=== PATIENT | male | born 1930 | race Caucasian/White ===

== ENCOUNTER 2016-05-15 13:11 | Inpatient (IN) | payer OTHER, MEDICARE ==
[~2016-05-15] VITALS: Ht 177.8 cm; Wt 120.2 kg
[~2016-05-15 13:11] MED LIST: ALPRAZOLAM0.5 MG PO; AMOXICILLIN500 MG PO; ASPIRIN CHILDRE81 MG PO; ASPIRIN E.C.81 MG PO; AUGMENTIN 875-1 EACH PO; AUGMENTIN 875875 MG PO; AVODART0.5 MG PO; CALCIUM 600600 M1 PO; COUMADIN 5 MG TA5 MG PO; COUMADIN2.5 M1 PO; CRESTOR40 MG PO; FENTANYL TR50 MCG/HR TOP; FENTANYL1 EAC3 TOP; FLOMAX(MONOGRA0.4 MG PO; FOLIC ACID0.8 MG PO; FUROSEMIDE40 M1 PO; K-TAB ER20 MEQ PO; LISINOPRIL10 M1 PO; MIRALAX17 GM PO; MUCINEX600 MG PO; NEURONTIN800 M1 PO; NITROSTAT0.4 MG PO; PERCOCET 10-321 EACH PO; PERCOCET 325 MG1 TAB PO; PREDNICOT10 MG PO; PREDNISONE5 M1 PO; PROBIOTIC FORMU1 CAP PO; PROTONIX40 M3 PO; SPIRIVA 18 MCG18 MCG INH; TOPROL XL 25MG25 MG PO; TOPROL XL25 M1 PO; TYLENOL500 MG PO; WARFARIN SODIU2.5 MG PO
[2016-05-15 14:03] LABS: ABSOLUTE BASOPHIL COUNT 0 /CUMM (0.0-0.2); ABSOLUTE EOSINOPHIL COUNT 0 /CUMM (0.0-0.7); ABSOLUTE GRANULOCYTE CT 6.6 /CUMM (1.4-6.5); ABSOLUTE LYMPH COUNT 0.9 /CUMM (1.2-3.4); ABSOLUTE MONOCYTE COUNT 0.3 /CUMM (0.10-0.60); BASOPHIL % 0.2 % (0.0-2.0); EOSINOPHIL % 0.6 % (0-5); HEMATOCRIT 43.2 % (42-52); MEAN CORPUSCULAR HGB 31.4 PG (27.0-31.0); MEAN CORPUSCULAR HGB CONC 34.5 G/DL (33.0-37.0); MEAN PLATELET VOLUME 7.6 FL (7.4-10.4); PLATELET COUNT 161 /CUMM (130-400); RBC DISTRIBUTION WIDTH 15.3 % (11.5-14.5); RED BLOOD CELL CT 4.75 /CUMM (4.70-6.10); WHITE BLOOD CELL COUNT 7.9 /CUMM (4.8-10.8)
[2016-05-15 14:08] LABS: PT 23.6 SEC (9.4-12.5)
[2016-05-15 14:23] LABS: GRANULOCYTE % 83.8 % (42.2-75.2)
--- NOTE | 2016-05-15 14:46 | CT SCAN REPORT ---
EXAMINATION: CT HEAD WITHOUT CONTRAST CT CERVICAL SPINE WITHOUT CONTRAST CLINICAL INFORMATION: 85-year-old man with fall, head injury, and neck pain. COMPARISON: 12/06/[address] TECHNIQUE: Imaging was performed from the skull base to vertex without intravenous administration of contrast. In addition, helical noncontrast CT imaging was acquired through the cervical spine and source images were reviewed along with axial reconstructions and sagittal and coronal MPRs. 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 No intracranial mass, hemorrhage, or midline shift is visualized. No extra-axial collections are identified. The paranasal sinuses are well aerated. There is patchy opacification of left sided mastoid tip cells. CERVICAL SPINE: There is no evidence of acute cervical spine fracture. Vertebral bodies remain normal in height. There has been prior instrumented C4-C5 ACDF and there is also solid interbody bony bridging at C5-C6 and C6-C7. There is multilevel facet ankylosis. There is straightening of the normal cervical lordosis with mild degenerative endplate changes at C2-C3, C3-C4, and C7-T1, accompanied by mild loss of normal disc space. No pre- or paravertebral soft tissue abnormality is identified. Limited assessment of the lung apices is unremarkable. IMPRESSION: 1. No acute intracranial pathology. 2. No CT evidence of acute cervical spine fracture or traumatic subluxation.
--- NOTE | 2016-05-15 15:36 | ED MVC/FALL/TRAUMA COMPLAINT ---
History of Present Illness General Chief Complaint: Fall Stated Complaint: BIBA FALL Source: patient, family, old records, EMS Exam Limitations: no limitations Vital Signs & Intake/Output Vital Signs & Intake/Output Vital Signs Date Time Temp Pulse Resp B/P Pulse O2 O2 Flow FiO2 Ox Delivery Rate 05/15 1646 97.6 70 18 144/65 96 Nasal 2.0L Cannula 05/15 1334 97 Nasal 2.0L Cannula 05/15 1333 97.7 78 18 138/60 97 Nasal 2.0L Cannula Allergies Coded Allergies: NO KNOWN ALLERGIES (10/07/14) Reconcile Medications Acetaminophen (Tylenol) 500 MG TAB 1 TAB PO DAILY PRN PAIN (Reported) NOT GIVEN IN HOSPITAL Amoxicillin/Potassium Clav (Augmentin 875-125 Tablet) 1 EACH TABLET 1 TAB PO BID PRN wound prophylaxis Aspirin (Aspirin E.c.) 81 MG ECT 1 TAB PO DAILY HEART HEALTH (Reported) Dutasteride (Avodart) 0.5 MG CAP 1 CAP PO DAILY PROSTATE (Reported) Fentanyl 1 EACH PATCH.TD72 1 PAT TOP Q3D PAIN (Reported) Folic Acid 0.8 MG TAB 1 TAB PO DAILY SUPPLEMENT (Reported) Furosemide 40 MG TABLET 1 TAB PO DAILY HEART (Reported) Gabapentin (Neurontin) 800 MG TABLET 1 TAB PO TID NEUROPATHY (Reported) NOT GIVEN IN HOSPITAL Guaifenesin (Mucinex) [address] 1 TAB PO DAILY PRN SPUTUM PRODUCTION ( Reported) Lactobacillus Acidophilus (Probiotic Formula Capsule) 10B CELL CAPSULE 1 TAB PO DAILY PROBIOTIC (Reported) Lisinopril 10 MG TABLET 1 TAB PO DAILY HTN (Reported) Metoprolol Succ XL (Toprol XL) (Unknown Strength) TAB (Unknown Dose) PO DAILY HEART/BP (Reported) Nitroglycerin (Nitrostat) 0.4 MG TAB.SUBL 1 TAB PO DAILY PRN CHEST PAIN ( Reported) OXYCODONE HCL/ACETAMINOPHEN (Percocet 10-325 MG Tablet) 325 MG/10 MG TAB 1 TAB PO Q4-6 PRN PAIN (Reported) NOT GIVEN IN HOSPITAL Oxycodone HCl/Acetaminophen (Percocet 10-325 MG Tablet) 1 EACH TABLET 1 TAB PO Q6H PRN pain Pantoprazole Sodium (Protonix) 40 MG TABLET.DR 1 TAB PO DAILY GASTRITIS ( Reported) NOT GIVEN IN HOSPITAL Polyethylene Glycol 3350 (Miralax) 17 GRAM/DOSE POWDER 17 GM PO DAILY CONSTIPATION (Reported) mix with water, juice, soda, coffee or tea NOT GIVEN IN HOSPITAL POTASSIUM CHLORIDE (K-Dur) 20 MEQ TAB.ER.PRT 1 TAB PO DAILY SUPPLEMENT ( Reported) Prednisone 5 MG TAB 1 TAB PO DAILY ARTHRITS (Reported) Rosuvastatin Calcium (Crestor) 40 MG TAB 1 TAB PO DAILY CHOLESTEROL (Reported ) NOT GIVEN IN HOSPITAL Tamsulosin Hydrochloride (Flomax) 0.4 MG CAP.ER.24H 1 CAP PO DAILY URINARY RETENTION (Reported) NOT GIVEN IN HOSPITAL Tiotropium [place] (Spiriva) 18 MCG CAP.W.DEV 1 CAP INH DAILY COPD (Reported) NOT GIVEN IN HOSPITAL Warfarin Sodium (Coumadin) 2.5 MG TABLET 1 TAB PO DAILY BLOOD THINNER ( Reported) Triage Note: 85 YEAR OLD MALE BIBA FALL AT HOME. PT STATES HE HAD JUST GONE UP 3 STEPS AND WAS RESTING BESIDE A CABINET WHEN HE FELL. PT DENIES FELLING DIZZY, LIGHT HEADED, CHEST PAIN OR SOB PRIOR TO FALL. PT DOES REPORT HOME OXYGEN USE 2L AT BASELINE. WHEN PT FELL HIS HEAD HIT ANOTHER GLASS CABINET. PT DENIES LOC, SEVERAL SMALL LACS NOTED TO BACK OF PT HEAD AND BEHIND LEFT EAR. BLEEDING IS CONTROLLED AT THIS TIME. PT REPORTS TAKING WARFARIN FOR HX OF TIA'S. Triage Nurses Notes Reviewed? yes Onset: Just prior to arrival Duration: minute(s):, constant, continues in ED Timing: recent history Severity: severe Injuries/Fall Location: head, neck, back Method of Injury: direct blow, fall Loss of Consciousness: no loss of consciousness Modifying Factors: Worsens With: palpation. Associated Symptoms: trouble walking HPI: Prior to admission while standing patient lost his balance and fell backwards striking his head with no loss consciousness. He complains of left lateral neck discomfort left low back pain scalp bleeding. There's been no fever chills chest pain cough shortness of breath headache dysuria rash. The family reports there has been gait instability. Past History Travel History Traveled to [place] past 21 day No Medical History Any Pertinent Medical History? 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 No Review of Systems Review of Systems Constitutional: Reports: see HPI, weakness. Eyes: Reports: no symptoms. Ears, Nose, Throat, Mouth: Reports: no symptoms. Respiratory: Reports: no symptoms. Cardiovascular: Reports: no symptoms. Gastrointestinal/Abdominal: Reports: no symptoms. Genitourinary: Reports: no symptoms. Musculoskeletal: Reports: see HPI, back pain, neck pain. Skin: Reports: see HPI. Neurological/Psychological: Reports: no symptoms. All Other Systems: Reviewed and Negative Physical Exam Physical Exam General Appearance: well developed/nourished, no apparent distress, awake, anxious, moderate distress, obese Head: contusions, tenderness, abrasions not actively bleeding Eyes: Bilateral: normal appearance, PERRL, EOMI, normal inspection. Ears, Nose, Throat, Mouth: hearing grossly normal, moist mucous membrane Neck: normal inspection, supple, full range of motion, normal alignment, paraspinous muscle tender Respiratory: normal breath sounds, chest non-tender, no respiratory distress, quiet respiration, lungs clear Cardiovascular: regular rate/rhythm, normal peripheral pulses, norml femoral pulses equa Peripheral Pulses: 4+ carotid (R), 4+ carotid (L) Gastrointestinal: normal bowel sounds, soft, non-tender, no organomegaly Back: normal inspection, normal range of motion, decreased range of motion Extremities: normal range of motion Neurologic/Psych: no motor/sensory deficits, awake, alert, oriented x 3, normal mood/affect, 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 No Severe Sepsis Present: No Septic Shock Present: No Progress Differential Diagnosis: C/T/L spine injury, ICH Plan of Care: Orders Procedure Date/time Status Consistent Carbohydrate 2 05/16 B Active PROTHROMBIN TIME 05/16 06 Active CBC WITHOUT DIFFERENTIAL 05/16 06 Active BASIC ELECTROLYTES PLUS BUN&CR 05/16 06 Active Pathway - chart 05/15 1847 Active Add-on Test (ER Only) 05/15 1839 Active FingerStick- Glucose 05/15 1834 Active URINALYSIS 05/15 1830 Active ACETONE 05/15 1830 Active Pathway - chart 05/15 1828 Active House Staff 05/15 1828 Active Patient Data 05/15 1823 Active OXYGEN SETUP (GEN) 05/15 1733 Active Saline Lock 05/15 1733 Active Admit to inpatient 05/15 1733 Active Vital Signs 05/15 1733 Active Activity/Ambulation 05/15 1733 Active Code Status 05/15 1733 Active TROPONIN LEVEL 05/15 1343 Active PROTHROMBIN TIME 05/15 1343 Complete COMPREHENSIVE METABOLIC PANEL 05/15 1343 Active CBC WITHOUT DIFFERENTIAL 05/15 1343 Complete EKG 05/15 1343 Active SERUM OSMOLALITY 05/15 1334 Active Intake & Output 05/15 UNK Active Current Medications Sig/Darshan Start time Last Medication Dose Stop Time Status Admin Morphine Sulfate 2 MG Q6P PRN 05/15 1900 AC (Morphine) Acetaminophen 650 MG Q6P PRN 05/15 1845 AC (Tylenol) Oxycodone/ 1 TAB Q6P PRN 05/15 1845 AC Acetaminophen (Percocet) Potassium Chloride 40 MEQ Q10H 05/15 184 AC (KCl 40MEQ in N.S. 1000 ml bag) Sodium Chloride 1,000 ML (Normal Saline 0.9%) Laboratory Tests 05/15/16 1334: Anion Gap 13, Estimated GFR 48 L, BUN/Creatinine Ratio 15.7, Glucose 580 *H, Serum Osmolality Pending, Calcium 8.4, Total Bilirubin 0.8, AST 38, ALT 41, Alkaline Phosphatase 112, Troponin I < 0.01, Total Protein 6.4, Albumin 3.8, Globulin 2.6, Albumin/Globulin Ratio 1.5, PT 23.6 H, INR 2.27 H, CBC w Diff NO MAN DIFF REQ, RBC 4.75, MCV 91.0, MCH 31.4 H, RDW 15.3 H, MPV 7.6, Gran % 83.8 H, Lymphocytes % 11.0 L, Monocytes % 4.4, Eosinophils % 0.6, Basophils % 0.2, Absolute Granulocytes 6.6 H, Absolute Lymphocytes 0.9 L, Absolute Monocytes 0.3, Absolute Eosinophils 0, Absolute Basophils 0, PUBS MCHC 34.5 Diagnostic Imaging: Viewed by Me: CT Scan. Discussed w/RAD: CT Scan. Radiology Impression: no acute abnormality, no fracture Departure Departure Disposition: OTHER PYSCH Condition: Stable Clinical Impression Primary Impression: Diabetes mellitus, new onset Secondary Impressions: Contusion, back Qualifiers: Encounter type: initial encounter Laterality: left Qualified Code: S20.222A - Contusion of left back wall of thorax, initial encounter Fall at home Qualifiers: Encounter type: initial encounter Qualified Codes: W19.XXXA - Unspecified fall, initial encounter; Y92.099 - Unspecified place in other non- institutional residence as the place of occurrence of the external cause Minor head injury without loss of consciousness Qualifiers: Encounter type: initial encounter Qualified Code: S09.90XA - Unspecified injury of head, initial encounter Neck muscle strain Qualifiers: Encounter type: initial encounter Qualified Code: S16.1XXA - Strain of muscle, fascia and tendon at neck level, initial encounter Referrals: OKSANA FRIEDMAN MD (PCP/Family) Departure Forms: Customer Survey General Discharge Information Admission Note [facility] Documentation of Exam: Documentation of any treatments & extenuating circumstances including Concerns Regarding Discharge (functional status, medication knowledge or non-compliance, living conditions, etc.) that warrant an admission rather than observation: Supplemental oxygen serial lab exam IV hydration endocrinology evaluation medication adjustment continuing care discharge planning physical therapy
--- NOTE | 2016-05-15 16:45 | RADIOLOGY REPORT ---
EXAMINATION: XR LUMBOSACRAL SPINE CLINICAL INFORMATION: Fall with low back pain COMPARISON: CT abdomen pelvis 09/26/2014 TECHNIQUE: 5 views lumbosacral spine FINDINGS: The patient is status decompression and post posterior spinal fusion L2-L5 with bilateral pedicle screws and interconnecting rods. The hardware appears intact without evidence of loosening or breakage. Intervertebral disc spacers are also present at these levels. Vertebral bodies maintain their height and alignment. Mild to moderate disc narrowing outside these levels at T12-L1, L1-L2. Severe degenerative disc disease L5-S1. Multilevel moderate to large degenerative osteophytes. Osteopenia limits evaluation. Sacroiliac joints appear intact. Moderate degenerative changes of the hips bilaterally. Retrievable IVC filter. Vascular calcifications. IMPRESSION: 1. No radiographic evidence of acute fracture or subluxation. 2. Post surgical changes L2-L5. The hardware appears intact. 3. Retrievable IVC filter. 4. Moderate degenerative changes of the hips.
--- NOTE | 2016-05-15 20:08 | History & Physical ---
WEN BUCKNER MD 05/15/16 2008: General Information and HPI MD Statement: I have seen and personally examined JASPAL SULTANA and documented this H&P. The patient is a 85 year old M who presented with a patient stated chief complaint of syncope/head trauma. Source of Information: patient, family Exam Limitations: no limitations History of Present Illness: 85 year old man with past medical history significant for COPD on 2.0L home oxygen, PE/DVT on coumadin, Diastolic CHF, and CAD s/p stents 5+ years ago seen for evaluation after passing out at home and hitting his head. He reports being at home in his normal state of health when he climbed a flight of four stairs and was standing at the top of the landing when he suddenly went down. He felt forward with his head hitting a glass case in front of him. He was wearing a hat that reportedly protected [his] head. He was awake and alert laying on the floor after the event as witnessed by his and daughter whom were present in the other room. He does not recall the fall and is unsure if he lost consciousness. He denies any aura, blurred/double vision, bowel/bladder incontinence, or shaking episodes/seizure activity or recent medication changes. He does admit to a recent lung infection where he was given a 10 day course of Bactrim that finished the day prior to admission. Additionally he denies any headache, fever, chills, chest pain, palpitations, shortness of breath, nausea, vomiting, diarrhea, urinary frequency/urgency/pain, constipation, weight loss, or decreased oral intake. PMHx: CAD s/p stents 5+ years ago, Diastolic CHF, COPD on 2.0L home O2, PE/DVT on coumadin, HTN, HLD Allergies/Medications Allergies: Coded Allergies: NO KNOWN ALLERGIES (10/07/14) Past History Travel History Traveled to [place] past 21 day No Medical History Neurological: NONE EENT: [place] Cardiovascular: CAD, CHF, hypertension, hyperlipidemia Respiratory: COPD, pulmonary embolism Gastrointestinal: NONE Hepatic: NONE Renal: NONE Musculoskeletal: NONE Psychiatric: NONE Endocrine: NONE Blood Disorders: DVT Cancer(s): NONE SPOT CLEANER/Reproductive: NONE History of MRSA: No History of VRE: No History of CDIFF: No Tetanus Vaccine: 12/06/15 Surgical History Surgical History: BILAT KNEE REPLACEMENTS 8 BACK SURGERYS Multiple spinal surgeries ivc FILTER CARDIAC CATH WITH STENT PLACEMENT Past Family/Social History Family History Relations & Conditions if any BROTHER MOTHER Relation not specified for: FH: CAD (coronary artery disease) Premature CAD Psychosocial History Where do you live? Home Services at Home: None Review of Systems Review of Systems Constitutional: Reports: see HPI. Exam & Diagnostic Data Last 24 Hrs of Vital Signs/I&O Vital Signs Date Time Temp Pulse Resp B/P Pulse O2 O2 Flow FiO2 Ox Delivery Rate 05/15 2133 66 118/70 05/15 1957 98.2 72 18 116/72 05/15 1955 98.2 72 18 116/72 05/15 1934 98.2 72 18 116/72 97 Nasal 2.0L Cannula 05/15 1646 97.6 70 18 144/65 96 Nasal 2.0L Cannula 05/15 1334 97 Nasal 2.0L Cannula 05/15 1333 97.7 78 18 138/60 97 Nasal 2.0L Cannula Intake & Output 05/15 1600 05/15 0800 05/15 0000 Intake Total 1320 Output Total 725 Balance 595 Intake, IV 1000 Intake, Oral 320 Output, Urine 725 Physical Exam General Appearance Alert, Oriented X3, Cooperative, No Acute Distress Skin Multiple minor non bleeding abrasion on scalp and left ear HEENT PERRLA, EOMI, Mucous Membr. moist/pink Neck Supple, No JVD, +2 Carotid Pulse wo Bruit Cardiovascular Regular Rate, Normal S1, Normal S2, No Murmurs Lungs Clear to Auscultation, Normal Air Movement Abdomen Normal Bowel Sounds, Soft, No Tenderness, No Hepatospenomegaly, No Masses Neurological Normal Speech, Strength at 5/5 X4 Ext, Normal Tone, Cranial Nerves 3-12 NL Extremities No Clubbing, No Cyanosis, No Edema, Normal Pulses, No Tenderness/ Swelling Vascular Normal Pulses, Pulses Symmetrical Last 24 Hrs of Labs/Michael: Laboratory Tests 05/15/16 1830: Acetone Level Cancelled 05/15/16 1334: Hemoglobin A1c Pending 05/15/16 1334: Anion Gap 13, Estimated GFR 48 L, BUN/Creatinine Ratio 15.7, Glucose 580 *H, Serum Osmolality 305 H, Calcium 8.4, Total Bilirubin 0.8, AST 38, ALT 41, Alkaline Phosphatase 112, Troponin I < 0.01, Total Protein 6.4, Albumin 3.8, Globulin 2.6, Albumin/Globulin Ratio 1.5, Vitamin B12 607, 25-OH Vitamin D Total 6.7 L, TSH 2.170, Free T4 0.86, PT 23.6 H, INR 2.27 H, CBC w Diff NO MAN DIFF REQ, RBC 4.75, MCV 91.0, MCH 31.4 H, RDW 15.3 H, MPV 7.6, Gran % 83.8 H, Lymphocytes % 11.0 L, Monocytes % 4.4, Eosinophils % 0.6, Basophils % 0.2, Absolute Granulocytes 6.6 H, Absolute Lymphocytes 0.9 L, Absolute Monocytes 0.3, Absolute Eosinophils 0, Absolute Basophils 0, PUBS MCHC 34.5, Acetone Level Pending Diagnostic Data EKG Results NSR HR 76 AR 232 QTc 464 1st degree AVB Old t-wave inversions Assessment/Plan Assessment: 85 year old male with multiple medical problems significant for CAD, CHF, COPD, and PE/DVT seen for evaluation after a syncopal episode with associated head trauma. Patients family members offer collateral information regarding patients recent health status. He apparently has suffered another recent fall without any obvious trauma. Vital signs in the ED were within acceptable limits. Physical examination demonstrated an obese elderly man with multiple minor head laceration and normal cardiopulmonary examination in no acute distress. Lab work demonstrated a CBC within normal limits and a serum chemistry significant for Na 129, K 4.7, BUN/Cr 22/1.4, Glu 508. LFTs/troponin within normal limits. EKG was NSR HR 76, AR 232, QTC 464, with 1st degree AVB & old t-wave inversions. CT head /neck was negative for any acute intracranial pathology or fracture. Lumbar radiograph was within normal limits. Given patients extensive cardiac history and history of present illness and mechanism of injury patient will be admitted to the telemetry floor for further evaluation and care. Syncopal Episode: Extensive cardiac history of CAD s/p stents 5+ years ago, Diastolic CHF, HTN, and PE/DVT on coumadin. Patient of Dr. Lopez. Most recent echocardiogram () demonstrates an EF of >65% with diastolic dysfunction. EKG on admission demonstrates NSR 76, AR 232, QTC 464, 1st AVB, old t-wave inversion in precordial leads. Given patients history of present illness and sudden loss of consciousness cardiac causes cannot be ruled out. CT Head/Neck did not demonstrate any acute intracranial pathology/bleed/fracture. -Telemetry -Trend troponins/EKG -Nitroglycerin 0.4mg SL -Cardiology consult Hyperglycemia/New Onset Diabetes: No reported history of diabetes mellitus, no HbA1c available. -Accuchecks TIDAC/HS -Novolog sliding scale insulin -F/U HbA1c, Serum OSM, ketones Acute Kidney Injury: Creatitine baseline of 1.1 as of 12/06/15. Creatinine was found to be elevated to 1.4 on admission. -Normal saline @ 100mL/hr -Hold lisinopril/lasix COPD: On 2.0L supplemental oxygen at home. -Supplemental oxygen, goal >92% Obstructive Sleep Apnea - stable, continue nocturnal CPAP CAD - s/p stents, continue aspirin History of PE/DVT - no obvious bleeding, daily INR, dose coumadin accordingly Gout - stable, continue prednisone Hypertension - stable, continue Metoprolol Hyperlipidemia - stable, continue statin GERD - stable, continue Pantoprazole BPH - stable, continue flomax Pain Plan: -Acetaminophen 650mg PO Q6H PRN Pain 1-3 -Percocet 10mg PO Q6H PRN Pain 4-6 -Morphine 2mg IV Q6H PRN Pain 7-10 Diet - Heart Healthy Diet DVT PPx - Heparin Code Status - FULL CODE As Ranked By This Provider Problem List: 1. Fall at home Qualifiers Encounter type: initial encounter Qualified Codes: W19.XXXA - Unspecified fall, initial encounter; Y92.099 - Unspecified place in other non-institutional residence as the place of occurrence of the external cause Core Measures/Miscellaneous Acute Coronary Syndrome ACS Diagnosis: No Cerebrovascular Accident CVA/TIA Diagnosis: No Congestive Heart Failure CHF Diagnosis: No Venous Thromboembolism VTE Risk Factors: Acute medical illness, Age > 40, Obesity VTE Prophylaxis Ordered Inpt: Pharm- [facility]arin [facility] VTE prophylaxis d/t: No contraindications No VTE Pharm Prophylaxis d/t: No contraindications VTE Diagnosis: No VTE Type: NONE VTE Confirmed by (Test): NONE Severe Sepsis Severe Sepsis Present: No Septic Shock Septic Shock Present: No Miscellaneous Documentation Attending Case Discussed With: CAMPOS SAPP MD Primary Care Physician: OKSANA FRIEDMAN MD Patient sees these Specialists Dr. Lopez (Cardiology) Dr. Thakur (Pulmonology) Dr. Royal (Rheumatology) Level of Patient Care: Telemetry Consults Needed: Consulting Specialty: Cardiology SEKOU MCNEAL, [facility] 05/15/16 2015: Attending MD Review Statement Attending Statement Attending MD Statement: examined this patient, discuss w/resident/PA/FOOTWEAR SALES REPRESENTATIVE, agreed w/resident/PA/FOOTWEAR SALES REPRESENTATIVE, discussed with family Attending Assessment/Plan: 85 yo morbidly obese M with h/o COPD on 2L, SILVANO on CPAP, CAD s/p stent, chronic HFpEF, HTN, PE/ DVT s/p IVC on coumadin, TIA, polymyalgia on prednisone, presents status post fall at home. Patient reports walking up a few stairs, after which 'all he remembers' is that he was on the floor and his posterior aspect of head was bleeding as his head hit the glass cabinet. Similar fall about 1 year ago. He reports feeling very weak, but denies dizziness prior to the event. C/o polyuria, polydipsia and nocturia. He was recently treated for a URI with Bactrim. He has chronic exertional dyspnea and tends to increase his O2 to 4 L when needed. Patient follows Dr. Royal (Rheum), Dr. Soto (Pulm), Dr. Lopez (Cardio) and Dr. Amaya (Vascular). VSS. Labs: INR 2.27, Na 129, K 4.7, BUN/Cr 22/1.4 (baseline 1.1) glucose 580, corrected sodium for hyperglycemia is 137, trop < 0.01, UA neg. EKG: SR 76, T wave inv V2-4 (old), CT head/cervical and LS spine no fractures. Echo 01/31/15: EF 65%, stage 1 diastolic dysfunction. 1. Fall with possbile syncopal episode. Monitor for arrhythmias, check orthostats, rule out ACS, Cardio consult. Patient reports he had an Echo recently with Dr. Lopez, hold off on echo for now. Neurochecks, fall precautions, check TSH, free T4, vit D, B12. PT eval and possible placement. Patient is on chronic prednisone, if hypotensive check cortisol level and give stress dose steroids. 2. Weakness, hyperglycemia in the setting of chronic prednisone use. Accucheks, check HbA1c, intiiate novolog SS. Endo consult in AM. 3. IVAN. IV fluids, hold lasix, lisinopril. 4. Chronic back pain, Ct. Percocet as needed. DVT ppx dose coumadin per INR. Full code. TORO ESTEBAN MD 05/15/162040: General Information and HPI Allergies/Medications Home Med list Acetaminophen (Tylenol) 500 MG TAB 1 TAB PO DAILY PRN PAIN (Reported) NOT GIVEN IN HOSPITAL Alprazolam 0.25 MG TABLET 1-2 TAB PO DAILY NEEDED Anxiety (Reported) Aspirin (Aspirin E.c.) 81 MG ECT 1 TAB PO DAILY HEART HEALTH (Reported) Calcium Carbonate/Vitamin D3 (Calcium 600 + Vit D 200 Tablet) 600 MG-200 TABLET 2 TAB PO DAILY supplement (Reported) Folic Acid 0.8 MG TAB 1 TAB PO DAILY SUPPLEMENT (Reported) Furosemide 40 MG TABLET 1 TAB PO DAILY EDEMA (Reported) Reason to Stop at ADM: IVAN Gabapentin (Neurontin) 800 MG TABLET 1 TAB PO TID NEUROPATHY (Reported) NOT GIVEN IN HOSPITAL Guaifenesin (Mucinex) [address] 1 TAB PO DAILY PRN SPUTUM PRODUCTION ( Reported) Lactobacillus Acidophilus (Probiotic Formula Capsule) 10B CELL CAPSULE 1 TAB PO DAILY PROBIOTIC (Reported) Lisinopril 10 MG TABLET 1 TAB PO DAILY Blood pressure (Reported) Reason to Stop at ADM: IVAN Metoprolol Succ XL (Toprol XL) 25 MG TAB 50 MG PO DAILY HEART/BP (Reported) Nitroglycerin (Nitrostat) 0.4 MG TAB.SUBL 1 TAB PO DAILY PRN CHEST PAIN ( Reported) Omeprazole 40 MG CAPSULE.DR 1 CAP PO BID STOMACH (Reported) OXYCODONE HCL/ACETAMINOPHEN (Percocet 10-325 MG Tablet) 325 MG/10 MG TAB 1 TAB PO Q4-6 PRN PAIN (Reported) NOT GIVEN IN HOSPITAL Potassium Chloride (K-Tab ER) 20 MEQ TABLET.ER 1 TAB PO DAILY Supplement ( Reported) Reason to Stop at ADM: Not needed, stable level Prednisone 5 MG TAB 1 TAB PO DAILY ARTHRITS (Reported) Rosuvastatin Calcium (Crestor) 40 MG TAB 1 TAB PO DAILY CHOLESTEROL (Reported ) NOT GIVEN IN HOSPITAL Tamsulosin Hydrochloride (Flomax) 0.4 MG CAP.ER.24H 1 CAP PO DAILY URINARY RETENTION (Reported) NOT GIVEN IN HOSPITAL Tiotropium [place] (Spiriva) 18 MCG CAP.W.DEV 1 CAP INH DAILY COPD (Reported) NOT GIVEN IN HOSPITAL Warfarin Sodium (Coumadin) 5 MG TABLET 1 TAB PO 1700 Blood thinner (Reported) Resident Review Statement Resident Statement: examined this patient, discussed with wireless internet installer, agreed with wireless internet installer, discussed with family, reviewed EMR data (avail), discussed with nursing , discussed with case mgmt, reviewed images, amended to note Other Findings: 85 yo male with pmh of CAD s/p stent, chronic diastolic CHF (EF 65% 2014), HTN, HLD, COPD on 2L, Hx of pulmonary embolism/DVT (s/p IVC filter 2013) on coumadin, TIA (x 2 times), SILVANO on CPAP, ?RA/gout on prednisone BIBA due to witnessed fall at home. Around 12:30pm, he walked up 4 stairs and he fell down on the floor hitting his head on glass cabinet. He denied chest pain/palpitation, shortness of breath, dizziness, visual disturbance, weakness prior to fall. However, he didn't remember the moment he fell down. His and daughter witnessed the fall and he gained consciousness right after the fall. He followed marketing operations manager (Dr. Lopez) and building estimator (Dr. Thakur) in early . He was recently treated wth po bactrim for cough/sputum from PCP. He denies any fever/ chills, cough/sputum, chest pain/SOB. Otherwise, he c/o polydipsia/polyuria/ nocturia for 3 months. He c/o 8/10 Lt. sided back pain s/p fall. V/S: 98.2F AR 72 RR 18 BP 116/72 97% on 2L, on exam general: alert, oriented x 3 , in mild distress, obese, HEENT: PERRLA, EOM intact, dry mucosa, Neck: obese, no carotid bruit, Cardiovascular: regular, normal S1/S2, no murmurs, Lung: CTA, Abdomen: soft, non-tender, normal bowel wound, LE: mild pitting edema 1+, normal pulses, Neurologic: motor 4/5, cranial nerves grossly intact, Skin: Post, scalp supf lacerations x 2, Lt. ear lobe abrasion. Labs: WBC 7.9, INR 2.27, Na 129, K 4.7, BUN/Cr 22/1.4 (base 1.1) glucose 580 ( initial) -> 376 (4pm), trop < 0.01, EKG: SR 76, LAD, AR 232, QTc 464, Old T wave inv V1-4, last echo 01/31/15: EF 65%, stage [address] head / cervical spine: 1. No acute intracranial pathology. 2. No CT evidence of acute cervical spine fracture or traumatic subluxationm, lumbar x-ray: 1. No radiographic evidence of acute fracture or subluxation.2. Post surgical changes L2-L5. The hardware appears intact.3. Retrievable IVC filter.4. Moderate degenerative changes of the hips. 1. S/p fall: cardiac syncope vs. orthostatic BP vs. mech fall. Keep tele monitor , follow serial EKG/trops, cardiology consult in AM, check orthostatic BP, neurochecks q4, if any change in mental status or neurologic deficit, check head CT. PT in am. Check TSH/Vit b12/Vit D 2. Hyperglycemia, new onset: questionable HHS, pt was on chronic prednisone, after getting RI 10 units, BS decreased from 580 to 376, continue IV NS @ 100cc/ hr for now, check HbA1c, urine ketones, serum Osm/acetone, Accuchecks, Novolog s /s, follow BEP, endocrinology consult in am. 3. IVAN: Likely prerenal. Hold lisinopril, lasix for now. Continue IV hydration and follow BEP. 4. hx of PE/DVT: c/w coumadin per INR 5. HTN: c/w metoprolol 50mg daily 6. HLD: c/w lipitor 7. SILVANO: c/w nocturnal CPAP 8. COPD: stable, continue 2L O2 support 9. ?RA/gout: c/w home dose of prednisone (pt following Dr. Royal) Pain control with pain pathway, DVT ppx: po coumadin, full code.
--- NOTE | 2016-05-15 20:17 | Admission Certification ---
Admission Certification Certification Statement - As attending physician, I certify that at the time of - admission, based on clinical presentation, severity of - symptoms, need for further diagnostic testing and - therapeutic interventions, and risk of adverse outcomes - without in-hospital treatment, in my clinical assessment, - this patient requires an acute hospital stay for a minimum - of two nights or longer. I have also considered psychsocial - factors such as support system, advanced age, financial - issues, cognitive issues, and failed out-patient treatments, - past re-admission history, safety of patient, and lack of - compliance as applicable. Specific rationale supporting this admission is: Fall, ?syncope, weakness, new onset diabetes.
[2016-05-15] MEDS ORDERED: COUMADIN5 M2 PO (20:30)
[2016-05-15] MEDS ORDERED: ALPRAZOLAM0.25 M1 PO (20:31)
[2016-05-15] MEDS ORDERED: OMEPRAZOLE40 M1 PO (20:33)
[2016-05-15] MEDS ORDERED: CALCIUM 600 +1 EA10 PO (20:38)
[2016-05-15 22:08] VITALS: BP 116/64
[2016-05-16 08:00] VITALS: BP 110/60
[2016-05-16 08:07] LABS: ABSOLUTE BASOPHIL COUNT 0 /CUMM (0.0-0.2); ABSOLUTE EOSINOPHIL COUNT 0.1 /CUMM (0.0-0.7); ABSOLUTE GRANULOCYTE CT 6.3 /CUMM (1.4-6.5); ABSOLUTE LYMPH COUNT 1.3 /CUMM (1.2-3.4); ABSOLUTE MONOCYTE COUNT 0.7 /CUMM (0.10-0.60); BASOPHIL % 0.2 % (0.0-2.0); EOSINOPHIL % 1.5 % (0-5); GRANULOCYTE % 75.1 % (42.2-75.2); HEMATOCRIT 38.9 % (42-52); MEAN CORPUSCULAR HGB 31.4 PG (27.0-31.0); MEAN CORPUSCULAR HGB CONC 33.8 G/DL (33.0-37.0); MEAN CORPUSCULAR VOLUME 92.9 FL (80.0-94.0); MEAN PLATELET VOLUME 7.7 FL (7.4-10.4); PLATELET COUNT 152 /CUMM (130-400); RBC DISTRIBUTION WIDTH 15.1 % (11.5-14.5); RED BLOOD CELL CT 4.19 /CUMM (4.70-6.10); WHITE BLOOD CELL COUNT 8.4 /CUMM (4.8-10.8)
[2016-05-16 08:26] LABS: PT 25.6 SEC (9.4-12.5)
--- NOTE | 2016-05-16 08:28 | Cons- Endocrinology ---
General Information and HPI Consulting Request Date of Consult: 05/16/16 Requested By: medical team Reason for Consult: Uncontrolled diabetes Source of Information: patient, old records Exam Limitations: no limitations History of Present Illness: This 85-year-old male with a complex past medical history including COPD, coronary artery disease, chronic low back pain with difficulty walking had a fall at home prior to admission. He is just returned from shopping and had entered his house and lost his balance and fell to the floor. He feels he did not lose consciousness although this is not clear. The patient denies any previous history of diabetes. Previous blood sugars in the [facility] computer have all been under 200. However on admission this time his blood sugar was found to be 580 with a low sodium of 129. In speaking with the patient he noted a lot of thirst and urination prior to admission. He was also drinking regular soda.. He has not lost any weight. He has a chronic history of obesity. He is on prednisone 5 mg 5 mg once a day for rheumatoid arthritis. He has a known cataract in his left eye but denies blurred vision except related to that cataract. Allergies/Medications Allergies: Coded Allergies: NO KNOWN ALLERGIES (10/07/14) Home Med List: Acetaminophen (Tylenol) 500 MG TAB 1 TAB PO DAILY PRN PAIN (Reported) NOT GIVEN IN HOSPITAL Alprazolam 0.25 MG TABLET 1-2 TAB PO DAILY NEEDED Anxiety (Reported) Aspirin (Aspirin E.c.) 81 MG ECT 1 TAB PO DAILY HEART HEALTH (Reported) Atorvastatin Calcium 80 MG TABLET 1 TAB PO DAILY HEART HEALTH Calcium Carbonate/Vitamin D3 (Calcium 600 + Vit D 200 Tablet) 600 MG-200 TABLET 2 TAB PO DAILY supplement (Reported) Cholecalciferol (Vitamin D3) 1,000 UNIT TABLET 1,000 IU PO DAILY BONE STRENGTH Folic Acid 1 MG TABLET 1 MG PO DAILY HEALTH SUPPLEMENT Gabapentin (Neurontin) 800 MG TABLET 1 TAB PO TID NEUROPATHY (Reported) NOT GIVEN IN HOSPITAL Guaifenesin (Mucinex) [address] 1 TAB PO DAILY PRN SPUTUM PRODUCTION ( Reported) Insulin Aspart, Recombinant (Novolog Flexpen) 100 UNIT/ML INSULN.PEN 0 SC TIDAC DIABETES 80-150 6 units 151-200 8 units 201-250 10 units 251-300 12 units 301-350 14 units 351-400 16 units Insulin Detemir (Levemir Flextouch) 100 UNIT/ML (3 ML) INSULN.PEN 16 UNITS SC BID DIABETES Lactobacillus Acidophilus (Probiotic Formula Capsule) 10B CELL CAPSULE 1 TAB PO DAILY PROBIOTIC (Reported) Metformin Hydochloride (Glucophage) 500 MG TABLET 500 MG PO 0800,1700 DIABETES Metoprolol Succ XL (Toprol XL) 25 MG TAB 50 MG PO DAILY HEART/BP (Reported) Nitroglycerin (Nitrostat) 0.4 MG TAB.SUBL 1 TAB PO DAILY PRN CHEST PAIN ( Reported) Omeprazole 40 MG CAPSULE.DR 1 CAP PO BID STOMACH (Reported) OXYCODONE HCL/ACETAMINOPHEN (Percocet 10-325 MG Tablet) 325 MG/10 MG TAB 1 TAB PO Q4-6 PRN PAIN (Reported) NOT GIVEN IN HOSPITAL Prednisone 5 MG TABLET 5 MG PO QAM arthritis (Reported) Please take this medication every morning Tamsulosin Hydrochloride (Flomax) 0.4 MG CAP.ER.24H 1 CAP PO DAILY URINARY RETENTION (Reported) NOT GIVEN IN HOSPITAL Tiotropium [place] (Spiriva) 18 MCG CAP.W.DEV 1 CAP INH DAILY COPD (Reported) NOT GIVEN IN HOSPITAL Warfarin Sodium (Coumadin) 5 MG TABLET 1 TAB PO 1700 Blood thinner (Reported) Current Medications: Current Medications Sig/Darshan Start time Last Medication Dose Route Stop Time Status Admin Acetaminophen 650 MG Q6P PRN 05/15 1845 AC PO Acetaminophen 1,000 MG ONCE ONE 05/15 1745 DC 05/15 IV 05/15 174 195 Alprazolam 0.25 MG DAILY NEEDED 05/15 2045 AC 05/15 PO 05/22 2044 2316 Artificial Tears 2 GTT 4 TIMES/DAY 05/16 1000 AC OPH Aspirin 81 MG DAILY 05/16 1000 AC PO Atorvastatin Calcium 80 MG 1700 05/16 1700 AC PO Atorvastatin Calcium 80 MG ONCE ONE 05/15 1815 DC 05/15 PO 05/15 181 1956 Calcium/Vitamin D 2 TAB DAILY 05/16 1000 AC PO Folic Acid 1 MG DAILY 05/16 1000 AC PO Folic Acid 1 MG ONCE ONE 05/15 1815 DC 05/15 PO 05/15 181 195 Furosemide 40 MG ONE ONE 05/15 181 DC 05/15 PO 05/15 181 1956 Gabapentin 800 MG Q8 05/16 0600 AC 05/16 PO 0505 Gabapentin 800 MG Q8 05/15 2200 DC PO Gabapentin 800 MG ONCE ONE 05/15 1815 DC 05/15 PO 05/15 1816 1956 Guaifenesin 600 MG DAILY PRN 05/15 2030 AC PO Insulin Aspart 0 TIDAC 05/16 0800 AC SC Insulin Human Regular 10 UNITS ONCE ONE 05/15 1445 DC 05/15 IV 05/15 1446 1518 Lactobacillus 1 CAP DAILY 05/16 1000 AC Acidophilus PO Metoprolol Succinate 50 MG DAILY 05/16 1000 AC PO Metoprolol Succinate 50 MG ONCE ONE 05/15 1815 DC 05/15 PO 05/15 181 1956 Morphine Sulfate 2 MG Q6P PRN 05/15 1900 AC 05/16 IV 0503 Nitroglycerin 0.4 MG DAILY 05/16 1000 AC SL Omeprazole 40 MG BID 05/15 220 AC 05/16 PO 0030 Oxycodone/ 0 .STK-MED ONE 05/15 2016 DC Acetaminophen PO Oxycodone/ 1 TAB Q6P PRN 05/15 1845 AC 05/16 Acetaminophen PO 0656 Potassium Chloride 40 MEQ Q10H 05/15 184 DC Sodium Chloride 1,000 ML IV Prednisone 5 MG AT BEDTIME 05/15 2200 AC PO Prednisone 5 MG ONCE ONE 05/15 1815 DC 05/15 PO 05/15 181 1956 Sodium Chloride 1,000 ML Q10H 05/15 2000 AC 05/16 IV 0505 Sodium Chloride 1,000 ML BOLUS ONE 05/15 1445 DC 05/15 IV 05/15 1544 1518 Tamsulosin HCl 0.4 MG DAILY 05/16 1000 AC PO Tamsulosin HCl 0.4 MG ONCE ONE 05/15 1815 DC 05/15 PO 05/15 181 195 Tiotropium [place] 1 PUF DAILY 05/16 1000 AC INH Warfarin Sodium 5 MG 1700 05/16 1700 AC PO 05/16 1701 Warfarin Sodium 5 MG ONCE ONE 05/15 181 DC 05/15 PO 05/15 [id number] Review of Systems Review of Systems Constitutional: Denies: chills, fever. Cardiovascular: Denies: chest pain. Respiratory: Reports: short of breath. GI: Denies: nausea, vomiting. Genitourinary: Denies: dysuria. Skin: Reports: rash (easy bruisability). Neurological/Psychological: Reports: anxiety. Denies: depressed. Hematologic/Endocrine: Reports: polyuria, polydipsia. 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 Home Services at Home: Oxygen Smoking Status: Former Smoker Exam & Diagnostic Data Last 24 Hrs of Vital Signs/I&O Vital Signs Date Time Temp Pulse Resp B/P Pulse O2 O2 Flow FiO2 Ox Delivery Rate 05/16 0000 93 Nasal 2.0L Cannula 05/15 2221 Nasal 2.0L Cannula 05/15 2207 97.8 65 20 116/64 98 Nasal 2.0L Cannula 05/15 2132 66 118/70 05/15 1957 98.2 72 18 116/72 05/15 1955 98.2 72 18 116/72 05/15 1934 98.2 72 18 11672 97 Nasal 2.0L Cannula 05/15 1646 97.6 70 18 144/65 96 Nasal 2.0L Cannula 05/15 1334 97 Nasal 2.0L Cannula 05/15 1333 97.7 78 18 138/60 97 Nasal 2.0L Cannula Intake & Output 05/16 1600 05/16 0800 05/16 0000 Intake Total 1300 700 Output Total 950 525 Balance 350 175 Intake, IV 800 100 Intake, Oral 500 600 Output, Urine 950 525 Patient 265 lb Weight Vital Signs Date Time Temp Pulse Resp B/P Pulse O2 O2 Flow FiO2 Ox Delivery Rate 05/16 0000 93 Nasal 2.0L Cannula 05/15 2221 Nasal 2.0L Cannula 05/15 2207 97.8 65 20 116/64 98 Nasal 2.0L Cannula 05/15 2132 66 118/70 05/15 1957 98.2 72 18 116/72 05/15 1955 98.2 72 18 116/72 01/31 1934 98.2 72 18 116/72 97 Nasal 2.0L Cannula 05/15 1646 97.6 70 18 144/65 96 Nasal 2.0L Cannula 05/15 1334 97 Nasal 2.0L Cannula 05/15 1333 97.7 78 18 138/60 97 Nasal 2.0L Cannula Intake & Output 05/16 1600 05/16 0800 05/16 0000 Intake Total 1300 700 Output Total 950 525 Balance 350 175 Intake, IV 800 100 Intake, Oral 500 600 Output, Urine 950 525 Patient 265 lb Weight Physical Exam General Appearance: alert, awake, obese Head: normal appearance Eyes: Bilateral: normal appearance. Neck: normal inspection Respiratory: decreased breath sounds Cardiovascular: regular rate/rhythm Gastrointestinal: normal bowel sounds, soft, distention Extremities: normal inspection Neurologic/Psych: awake, alert, oriented x 3 Labs/Michael Results: Laboratory Tests 05/16 05/16 05/15 0645 0645 2300 Chemistry Sodium Pending Potassium Pending Chloride Pending Carbon Dioxide Pending Anion Gap Pending BUN Pending Creatinine Pending BUN/Creatinine Ratio Pending Troponin I Cancelled Pending Coagulation PT Pending INR Pending Hematology CBC w Diff Pending WBC Pending RBC Pending Hgb Pending Hct Pending MCV Pending MCH Pending RDW Pending Plt Count Pending MPV Pending PUBS MCHC Pending Urines Urine Color (YEL,AMB,STR) STRAW Urine Clarity (CLEAR) CLEAR Urine pH (5.0 - 8.0) 6.0 Ur Specific [place] (1.001 - 1.035) 1.015 Urine Protein (NEG,<30 MG/DL) TRACE H Urine Ketones (NEG) NEG Urine Nitrite (NEG) NEG Urine Bilirubin (NEG) NEG Urine Urobilinogen (0.1 - 1.0 EU/dl) 0.2 Ur Leukocyte Esterase (NEG) NEG Ur Microscopic SEDIMENT EXAMINED Urine RBC (0 - 5 /HPF) 3-5 Urine WBC (0 - 2 /HPF) RARE Ur Epithelial Cells (NONE,FEW) RARE Urine Hemoglobin (NEG) MOD H Urine Glucose (N MG/DL) >=1000 H 05/15 05/15 05/15 2230 1830 1334 Chemistry Sodium (137 - 145 mmol/L) 127 L Potassium (3.5 - 5.1 mmol/L) 4.3 Chloride (98 - 107 mmol/L) 91 L Carbon Dioxide (22 - 30 mmol/L) 27 Anion Gap (5 - 16) 8 BUN (9 - 20 mg/dL) 20 Creatinine (0.7 - 1.2 mg/dL) 1.4 H Estimated GFR (>60 ml/min) 48 L BUN/Creatinine Ratio (7 - 25 %) 14.3 Hemoglobin A1c Pending Troponin I (<0.11 ng/ml) < 0.01 Toxicology Acetone Level Cancelled 05/15 1334 Chemistry Sodium (137 - 145 mmol/L) 129 L Potassium (3.5 - 5.1 mmol/L) 4.7 Chloride (98 - 107 mmol/L) 91 L Carbon Dioxide (22 - 30 mmol/L) 25 Anion Gap (5 - 16) 13 BUN (9 - 20 mg/dL) 22 H Creatinine (0.7 - 1.2 mg/dL) 1.4 H Estimated GFR (>60 ml/min) 48 L BUN/Creatinine Ratio (7 - 25 %) 15.7 Glucose (65 - 99 mg/dL) 580 *H Serum Osmolality (285 - 295 MOSM/KG) 305 H Calcium (8.4 - 10.2 mg/dL) 8.4 Total Bilirubin (0.2 - 1.3 mg/dL) 0.8 AST (17 - 59 U/L) 38 ALT (21 - 72 U/L) 41 Alkaline Phosphatase (< 127 U/L) 112 Troponin I (<0.11 ng/ml) < 0.01 Total Protein (6.3 - 8.2 g/dL) 6.4 Albumin (3.5 - 5.0 g/dL) 3.8 Globulin (1.9 - 4.2 gm/dL) 2.6 Albumin/Globulin Ratio (1.1 - 2.2 %) 1.5 Vitamin B12 (239 - 931 pg/mL) 607 25-OH Vitamin D Total (30 - 100 ng/ml) 6.7 L Folate (2.76 - 20.0 ng/mL) > 20.0 H TSH (0.270 - 4.200 uIU/mL) 2.170 Free T4 (0.85 - 1.93 ng/dL) 0.86 Coagulation PT (9.4 - 12.5 SEC) 23.6 H INR (0.90 - 1.17) 2.27 H Hematology CBC w Diff NO MAN DIFF REQ WBC (4.8 - 10.8 /CUMM) 7.9 RBC (4.70 - 6.10 /CUMM) 4.75 Hgb (14.0 - 18.0 G/DL) 14.9 Hct (42 - 52 %) 43.2 MCV (80.0 - 94.0 FL) 91.0 MCH (27.0 - 31.0 PG) 31.4 H RDW (11.5 - 14.5 %) 15.3 H Plt Count (130 - 400 /CUMM) 161 MPV (7.4 - 10.4 FL) 7.6 Gran % (42.2 - 75.2 %) 83.8 H Lymphocytes % (20.5 - 51.1 %) 11.0 L Monocytes % (1.7 - 9.3 %) 4.4 Eosinophils % (0 - 5 %) 0.6 Basophils % (0.0 - 2.0 %) 0.2 Absolute Granulocytes (1.4 - 6.5 /CUMM) 6.6 H Absolute Lymphocytes (1.2 - 3.4 /CUMM) 0.9 L Absolute Monocytes (0.10 - 0.60 /CUMM) 0.3 Absolute Eosinophils (0.0 - 0.7 /CUMM) 0 Absolute Basophils (0.0 - 0.2 /CUMM) 0 PUBS MCHC (33.0 - 37.0 G/DL) 34.5 Toxicology Acetone Level (NEGATIVE) NEGATIVE Assessment/Plan Assessment/Plan This 85-year-old male with a complex past medical history including COPD coronary artery disease and chronic low back problems with difficulty walking had a fall at home after coming back from shopping. He feels he did not lose consciousness. He states he had no history of diabetes in the past. His blood sugar was found to be very elevated on admission at 580. He also presented with an acute on chronic renal insufficiency most likely due to dehydration along with a low sodium of 129. At this time I would place the patient on insulin. We should begin of a mirror 10 units twice a day the first dose this morning. In addition we should begin sliding scale NovoLog before meals. Sliding scale NovoLog before meals should be 80-150 give 4 units NovoLog, 151-200 give 6 units NovoLog, 201-250 give 8 units NovoLog, 251-300 give 9 units NovoLog, 301-350 give 10 units NovoLog, 351 of 400 give 11 units NovoLog. A separate bedtime sliding scale NovoLog should be written. Sliding-scale NovoLog at bedtime should be less than 250 give no insulin 251-300 give 2 units NovoLog, 301-350 give 3 units NovoLog, 351 2 400 give 4 units NovoLog. The patient has a very low vitamin D level of 6.7. We should put him on vitamin D3 1000 units daily. He needs to be evaluated from a cardiovascular point of view to see if in addition to the high sugar and dehydration A arrhythmia played a role. Consult Acknowledgment - Thank you for your consult request.
--- NOTE | 2016-05-16 10:32 | PN- Housestaff ---
ROSY MCNEAL,[facility] 05/16/16 1031: Subjective Follow-up For: Syncopal attack Tele-Events Since Last Visit: Sinus rhythm was first-degree heart block NE interval 0.22 Heart rate 60-72 PVC PAC Subjective: Patient was seen and examined this morning, he feels better, denied chest pain, palpitation, shortness of breath, visual disturbance, hearing changes. He reported feeling dizzy upon standing up of bed, needs to wait for a minute before he can start walk. Denied abdominal pain, nausea vomiting, last bowel movement was 2 days ago. Denied any urinary symptoms. Review of Systems Constitutional: Reports: see HPI. Objective Last 24 Hrs of Vital Signs/I&O Vital Signs Date Time Temp Pulse Resp B/P Pulse O2 O2 Flow FiO2 Ox Delivery Rate 05/16 1530 97.6 69 20 102/58 96 Nasal 2.0L Cannula 05/16 0919 74 110/60 05/16 0919 74 110/60 05/16 0800 94 Nasal 4.0L Cannula 05/16 0800 97.5 74 20 110/60 96 Nasal 2.0L Cannula 05/16 0000 93 Nasal 2.0L Cannula 05/152 Nasal 2.0L Cannula 05/15 2207 97.8 65 20 116/64 98 Nasal 2.0L Cannula 05/15 2133 66 118/70 05/158 98.2 72 18 116/72 05/15 195 98.2 72 18 116/72 05/15 1934 98.2 72 18 116/72 97 Nasal 2.0L Cannula Intake & Output 05/16 1600 05/16 0800 05/16 0000 Intake Total 1520 1300 700 Output Total 1500 950 525 Balance 20 350 175 Intake, IV 800 800 100 Intake, Oral 720 500 600 Output, Urine 1500 950 525 Patient 120.202 kg 120.202 kg Weight Physical Exam General Appearance: Alert, Oriented X3, Cooperative, No Acute Distress Skin: No Rashes, No Breakdown, No Significant Lesion HEENT: Atraumatic, PERRLA, EOMI, Mucous Membr. moist/pink Neck: Supple Cardiovascular: Regular Rate, Normal S1, Normal S2, No Murmurs Lungs: bilateral fine crackles Abdomen: Normal Bowel Sounds, No Tenderness, destinded hard abdomen, history of hernia, not tender Neurological: Normal Gait, Normal Speech, Strength at 5/5 X4 Ext, Normal Tone, Sensation Intact, Cranial Nerves 3-12 NL, Reflexes 2+ Extremities: No Clubbing, No Cyanosis, No Edema, Normal Pulses Assessment/Plan Assessment: 85 year old male with multiple medical problems significant for CAD, CHF, COPD, and PE/DVT seen for evaluation after a syncopal episode with associated head trauma. CT head/neck 05/15 was negative for any acute intracranial pathology or fracture. Lumbar spine x ray 05/15 was within normal limits. Syncopal Episode: Extensive cardiac history of CAD s/p stents 5+ years ago, Diastolic CHF, HTN, and PE/DVT on coumadin. Patient of Dr. Lopez. Most recent echocardiogram () demonstrates an EF of >65% with diastolic dysfunction. -Troponins/EKG negative -Continue Nitroglycerin 0.4mg SL -Cardiology consult was obtained, thanks for recommendation -Recommendation for ambulation and monitoring for the next 24 hours for any signs of arrhythmia Hyperglycemia/New Onset Diabetes: -HbA1c pending -Endocrine recommendation was obtained, thanks for recommendation -Start Levemir 10 units twice a day -NovoLog sliding scale before meals and separate 1 at bedtime -Very low vitamin D level of 6.7 -Start vitamin D3 1000 units daily -Accuchecks TIDAC/HS Acute Kidney Injury: -Continue to hold lisinopril/lasix -Blood pressure is stable -BUN normalized, creatinine improving 1.3<1.4 -Patient is eating drinking well COPD: On 2.0L supplemental oxygen at home. -Supplemental oxygen, goal >92% -Pulmonology consultation Obstructive Sleep Apnea - stable, continue nocturnal CPAP CAD - s/p stents, continue aspirin History of PE/DVT - no obvious bleeding, continue monitor INR, 5 mg warfarin was dosed today Gout - stable, continue prednisone 5 mg daily, gabapentin 800 mg every 8 Hypertension - stable, continue Metoprolol succinate 50 mg by mouth daily Hyperlipidemia - stable, continue atorvastatin 80 mg by mouth daily GERD - stable, continue omeprazole 40 mg twice a day BPH - stable, continue flomax 0.4 by mouth daily Anxiety - continue Xanax 0.25 mg 1 or 2 tablet daily Diet CCH2 DVT prophylaxis warfarin CODE STATUS full Consultation cardiology, pulmonology, PT Problem List: 1. Fall at home 2. Diabetes mellitus, new onset 3. COPD (chronic obstructive pulmonary disease) 4. CHF (congestive heart failure) 5. BPH Pain Ratin Pain Location: N/A Pain Goal: Pain 4 or less Pain Plan: Moderate pain medication Tomorrow's Labs & Rationales: CBC, CMP Consulting Request: Consulting Specialty: Cardiology SUMIT PRINCE MD 05/16/16 1447: Attending MD Review Statement Attending Statement Attending MD Statement: examined this patient, discuss w/resident/PA/[employer] EQUIPMENT MAINTENANCE SUPERVISOR, agreed w/resident/PA/F[employer] EQUIPMENT MAINTENANCE SUPERVISOR, reviewed EMR data (avail), discussed with nursing, discussed with case mgmt, amended to note Attending Assessment/Plan: The patient was seen and discussed with house staff and nursing. Agree with the plan of care as outlined.
[2016-05-16 15:30] VITALS: BP 102/58
--- NOTE | 2016-05-16 15:30 | Cons- Cardiology ---
General Information and HPI Consulting Request Date of Consult: 05/16/16 Requested By: SUMIT PRINCE MD Reason for Consult: Fall, possible syncope in a patient with known ischemic heart disease. Source of Information: patient, old records Exam Limitations: no limitations History of Present Illness: I am asked to see this 85-year-old male who is well known to me. 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 He has had actually several episodes of EECP therapy. Recently, his chest pain has been reasonably well controlled on Ranexa and other usual cardiac regimen. In April 2013 he had a small stroke involving his right arm and a little bit of aphasia, which completely resolved. Per neurology, he was switched from aspirin to Plavix on that admission. I saw him in the office subsequently on 06/04/2013 at which time he had no residual neurologic deficits and no cardiac complaints at that time. His lipids were under good control. His blood pressure was normal. His EKG showed no changes, and he was scheduled for routine followup. His last echocardiogram in 2014 showed good left ventricular systolic function and some mild thickening of his valves. We were unable to estimate right ventricular systolic pressure on that study. Subsequent the patient has continued to do reasonably well from a cardiac standpoint. He denies having chronic angina or using nitroglycerin. Yesterday he had a fall. He is not sure of exactly what happened but he said he "found himself on the floor". When I asked him he said he does not think he lost consciousness but is really not sure. So far in the hospital he has not had any clinically significant arrhythmias and his EKG has not shown any changes and his one troponin was negative. At the current time he only feels weak. Allergies/Medications Allergies: Coded Allergies: NO KNOWN ALLERGIES (10/07/14) Home Med List: Acetaminophen (Tylenol) 500 MG TAB 1 TAB PO DAILY PRN PAIN (Reported) NOT GIVEN IN HOSPITAL Alprazolam 0.25 MG TABLET 1-2 TAB PO DAILY NEEDED Anxiety (Reported) Aspirin (Aspirin E.c.) 81 MG ECT 1 TAB PO DAILY HEART HEALTH (Reported) Calcium Carbonate/Vitamin D3 (Calcium 600 + Vit D 200 Tablet) 600 MG-200 TABLET 2 TAB PO DAILY supplement (Reported) Folic Acid 0.8 MG TAB 1 TAB PO DAILY SUPPLEMENT (Reported) Furosemide 40 MG TABLET 1 TAB PO DAILY EDEMA (Reported) Reason to Stop at ADM: IVAN Gabapentin (Neurontin) 800 MG TABLET 1 TAB PO TID NEUROPATHY (Reported) NOT GIVEN IN HOSPITAL Guaifenesin (Mucinex) [address] 1 TAB PO DAILY PRN SPUTUM PRODUCTION ( Reported) Lactobacillus Acidophilus (Probiotic Formula Capsule) 10B CELL CAPSULE 1 TAB PO DAILY PROBIOTIC (Reported) Lisinopril 10 MG TABLET 1 TAB PO DAILY Blood pressure (Reported) Reason to Stop at ADM: IVAN Metoprolol Succ XL (Toprol XL) 25 MG TAB 50 MG PO DAILY HEART/BP (Reported) Nitroglycerin (Nitrostat) 0.4 MG TAB.SUBL 1 TAB PO DAILY PRN CHEST PAIN ( Reported) Omeprazole 40 MG CAPSULE.DR 1 CAP PO BID STOMACH (Reported) OXYCODONE HCL/ACETAMINOPHEN (Percocet 10-325 MG Tablet) 325 MG/10 MG TAB 1 TAB PO Q4-6 PRN PAIN (Reported) NOT GIVEN IN HOSPITAL Potassium Chloride (K-Tab ER) 20 MEQ TABLET.ER 1 TAB PO DAILY Supplement ( Reported) Reason to Stop at ADM: Not needed, stable level Prednisone 5 MG TAB 1 TAB PO DAILY ARTHRITS (Reported) Rosuvastatin Calcium (Crestor) 40 MG TAB 1 TAB PO DAILY CHOLESTEROL (Reported ) NOT GIVEN IN HOSPITAL Tamsulosin Hydrochloride (Flomax) 0.4 MG CAP.ER.24H 1 CAP PO DAILY URINARY RETENTION (Reported) NOT GIVEN IN HOSPITAL Tiotropium [place] (Spiriva) 18 MCG CAP.W.DEV 1 CAP INH DAILY COPD (Reported) NOT GIVEN IN HOSPITAL Warfarin Sodium (Coumadin) 5 MG TABLET 1 TAB PO 1700 Blood thinner (Reported) Current Medications: Current Medications Sig/Darshan Start time Last Medication Dose Route Stop Time Status Admin Acetaminophen 650 MG Q6P PRN 05/15 1845 AC PO Acetaminophen 1,000 MG ONCE ONE 05/15 1745 DC 05/15 IV 05/15 1746 1956 Alprazolam 0.25 MG DAILY NEEDED 05/15 2044 AC 05/15 PO 05/22 2043 2316 Artificial Tears 2 GTT 4 TIMES/DAY 05/16 1000 AC 05/16 OPH 1154 Aspirin 81 MG DAILY 05/16 1000 AC 05/16 PO 0918 Atorvastatin Calcium 80 MG 1700 05/16 1700 AC PO Atorvastatin Calcium 80 MG ONCE ONE 05/15 1814 DC 05/15 PO 05/15 1816 195 Calcium/Vitamin D 2 TAB DAILY 05/16 1000 AC 05/16 PO 0918 Cholecalciferol 1,000 IU DAILY 05/16 1202 AC 05/16 PO 1332 Folic Acid 1 MG DAILY 05/16 1000 AC 05/16 PO 0919 Folic Acid 1 MG ONCE ONE 05/15 1815 DC 05/15 PO 05/15 1816 1956 Furosemide 40 MG ONE ONE 05/15 1815 DC 05/15 PO 05/15 1816 195 Gabapentin 800 MG Q8 05/16 0600 AC 05/16 PO 1154 Gabapentin 800 MG Q8 05/15 2200 DC PO Gabapentin 800 MG ONCE ONE 05/15 1815 DC 05/15 PO 05/15 181 195 Guaifenesin 600 MG DAILY PRN 05/15 2030 AC PO Insulin Aspart 0 AT BEDTIME 05/16 2200 AC SC Insulin Aspart 0 TIDAC 05/16 1200 AC 05/16 SC 1202 Insulin Aspart 0 TIDAC 05/16 0800 DC 05/16 SC 0919 Insulin Detemir 10 UNITS BID 05/16 1200 AC 05/16 SC 1206 Lactobacillus 1 CAP DAILY 05/16 1000 AC 05/16 Acidophilus PO 0919 Metoprolol Succinate 50 MG DAILY 05/16 1000 AC 05/16 PO 0919 Metoprolol Succinate 50 MG ONCE ONE 05/15 181 DC 05/15 PO 05/15 181 195 Morphine Sulfate 2 MG Q6P PRN 05/15 1900 AC 05/16 IV 1115 Nitroglycerin 0.4 MG DAILY 05/16 1000 AC 05/16 SL 0920 Omeprazole 40 MG BID 05/15 2200 AC 05/16 PO 0919 Oxycodone/ 0 .STK-MED ONE 05/15 2016 DC Acetaminophen PO Oxycodone/ 1 TAB Q6P PRN 05/15 1845 AC 05/16 Acetaminophen PO 1155 Potassium Chloride 40 MEQ Q10H 05/15 184 DC Sodium Chloride 1,000 ML IV Prednisone 5 MG AT BEDTIME 05/15 2199 AC PO Prednisone 5 MG ONCE ONE 05/15 181 DC 05/15 PO 05/15 181 1956 Sodium Chloride 1,000 ML Q10H 05/15 1999 AC 05/16 IV 0505 Sodium Chloride 1,000 ML BOLUS ONE 05/15 1445 DC 05/15 IV 05/15 1544 1518 Tamsulosin HCl 0.4 MG DAILY 05/16 1000 AC 05/16 PO 0919 Tamsulosin HCl 0.4 MG ONCE ONE 05/15 181 DC 05/15 PO 05/15 Tiotropium [place] 1 PUF DAILY 05/16 1000 AC 05/16 INH 0919 Warfarin Sodium 5 MG 1700 05/16 1700 AC PO 05/16 1701 Warfarin Sodium 5 MG ONCE ONE 05/15 181 DC 05/15 PO 05/15 Review of Systems Review of Systems: He has no other complaints and review of systems at this time Past History Travel History Traveled to [place] past 21 day No Medical History Blood Transfusion Hx: No Neurological: peripheral neuropathy, TIA EENT: cataracts, hearing loss Cardiovascular: CAD, CHF, hypertension, hyperlipidemia, 2 CARDIAC STENTS Respiratory: COPD, pulmonary embolism Gastrointestinal: NONE Hepatic: NONE Renal: benign prost hyperplasia Musculoskeletal: chronic back pain, ARTHRITIS Psychiatric: anxiety Endocrine: NONE Blood Disorders: DVT Cancer(s): basal cell carcinoma 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 Home Services at Home: Oxygen Smoking Status: Former Smoker Exam & Diagnostic Data Vital Signs and I&O Vital Signs Date Time Temp Pulse Resp B/P Pulse O2 O2 Flow FiO2 Ox Delivery Rate 05/16 0919 74 110/60 05/16 0919 74 110/60 05/16 08 94 Nasal 4.0L Cannula 05/16 799 97.5 74 20 110/60 96 Nasal 2.0L Cannula 05/16 0000 93 Nasal 2.0L Cannula 05/15 2221 Nasal 2.0L Cannula 05/15 2207 97.8 65 20 116/64 98 Nasal 2.0L Cannula 05/15 2133 66 118/70 05/15 1957 98.2 72 18 116/72 05/15 1955 98.2 72 18 116/72 05/15 193 98.2 72 18 116/72 97 Nasal 2.0L Cannula 05/15 1646 97.6 70 18 144/65 96 Nasal 2.0L Cannula Intake & Output 05/16 1600 05/16 0800 05/16 0000 05/15 1600 05/15 0800 05/15 0000 Intake Total 1520 8626 549 7863 Output Total 1500 950 525 725 Balance 20 350 175 595 Intake, IV 800 051 581 8175 Intake, Oral 720 500 600 320 Output, Urine 1500 950 525 725 Patient 265 lb 265 lb Weight Physical Exam: He is an elderly obese man lying in bed alert cooperative in no acute distress HEENT exam is normal Neck veins are not distended Chest is clear to limited exam Heart reveals very soft heart sounds, regular rhythm, no murmurs Abdomen is obese without organomegaly or tenderness Extremities pulses are present, there is no edema Labs/Michael Results: Laboratory Tests 05/16 05/16 0645 0645 Chemistry Sodium (137 - 145 mmol/L) 127 L Potassium (3.5 - 5.1 mmol/L) 4.9 Chloride (98 - 107 mmol/L) 92 L Carbon Dioxide (22 - 30 mmol/L) 27 Anion Gap (5 - 16) 8 BUN (9 - 20 mg/dL) 19 Creatinine (0.7 - 1.2 mg/dL) 1.3 H Estimated GFR (>60 ml/min) 53 L BUN/Creatinine Ratio (7 - 25 %) 14.6 Troponin I (<0.11 ng/ml) Cancelled < 0.01 Coagulation PT (9.4 - 12.5 SEC) 25.6 H INR (0.90 - 1.17) 2.46 H Hematology CBC w Diff NO MAN DIFF REQ WBC (4.8 - 10.8 /CUMM) 8.4 RBC (4.70 - 6.10 /CUMM) 4.19 L Hgb (14.0 - 18.0 G/DL) 13.1 L Hct (42 - 52 %) 38.9 L MCV (80.0 - 94.0 FL) 92.9 MCH (27.0 - 31.0 PG) 31.4 H RDW (11.5 - 14.5 %) 15.1 H Plt Count (130 - 400 /CUMM) 152 MPV (7.4 - 10.4 FL) 7.7 Gran % (42.2 - 75.2 %) 75.1 Lymphocytes % (20.5 - 51.1 %) 15.1 L Monocytes % (1.7 - 9.3 %) 8.1 Eosinophils % (0 - 5 %) 1.5 Basophils % (0.0 - 2.0 %) 0.2 Absolute Granulocytes (1.4 - 6.5 /CUMM) 6.3 Absolute Lymphocytes (1.2 - 3.4 /CUMM) 1.3 Absolute Monocytes (0.10 - 0.60 /CUMM) 0.7 H Absolute Eosinophils (0.0 - 0.7 /CUMM) 0.1 Absolute Basophils (0.0 - 0.2 /CUMM) 0 PUBS MCHC (33.0 - 37.0 G/DL) 33.8 05/15 05/15 05/15 2300 2230 1830 Chemistry Sodium (137 - 145 mmol/L) 127 L Potassium (3.5 - 5.1 mmol/L) 4.3 Chloride (98 - 107 mmol/L) 91 L Carbon Dioxide (22 - 30 mmol/L) 27 Anion Gap (5 - 16) 8 BUN (9 - 20 mg/dL) 20 Creatinine (0.7 - 1.2 mg/dL) 1.4 H Estimated GFR (>60 ml/min) 48 L BUN/Creatinine Ratio (7 - 25 %) 14.3 Troponin I (<0.11 ng/ml) < 0.01 Toxicology Acetone Level Cancelled Urines Urine Color (YEL,AMB,STR) STRAW Urine Clarity (CLEAR) CLEAR Urine pH (5.0 - 8.0) 6.0 Ur Specific [place] (1.001 - 1.035) 1.015 Urine Protein (NEG,<30 MG/DL) TRACE H Urine Ketones (NEG) NEG Urine Nitrite (NEG) NEG Urine Bilirubin (NEG) NEG Urine Urobilinogen (0.1 - 1.0 EU/dl) 0.2 Ur Leukocyte Esterase (NEG) NEG Ur Microscopic SEDIMENT EXAMINED Urine RBC (0 - 5 /HPF) 3-5 Urine WBC (0 - 2 /HPF) RARE Ur Epithelial Cells (NONE,FEW) RARE Urine Hemoglobin (NEG) MOD H Urine Glucose (N MG/DL) >=1000 H 05/15 05/15 1334 1334 Chemistry Sodium (137 - 145 mmol/L) 129 L Potassium (3.5 - 5.1 mmol/L) 4.7 Chloride (98 - 107 mmol/L) 91 L Carbon Dioxide (22 - 30 mmol/L) 25 Anion Gap (5 - 16) 13 BUN (9 - 20 mg/dL) 22 H Creatinine (0.7 - 1.2 mg/dL) 1.4 H Estimated GFR (>60 ml/min) 48 L BUN/Creatinine Ratio (7 - 25 %) 15.7 Glucose (65 - 99 mg/dL) 580 *H Hemoglobin A1c Pending Serum Osmolality (285 - 295 MOSM/KG) 305 H Calcium (8.4 - 10.2 mg/dL) 8.4 Total Bilirubin (0.2 - 1.3 mg/dL) 0.8 AST (17 - 59 U/L) 38 ALT (21 - 72 U/L) 41 Alkaline Phosphatase (< 127 U/L) 112 Troponin I (<0.11 ng/ml) < 0.01 Total Protein (6.3 - 8.2 g/dL) 6.4 Albumin (3.5 - 5.0 g/dL) 3.8 Globulin (1.9 - 4.2 gm/dL) 2.6 Albumin/Globulin Ratio (1.1 - 2.2 %) 1.5 Vitamin B12 (239 - 931 pg/mL) 607 25-OH Vitamin D Total (30 - 100 ng/ml) 6.7 L Folate (2.76 - 20.0 ng/mL) > 20.0 H TSH (0.270 - 4.200 uIU/mL) 2.170 Free T4 (0.85 - 1.93 ng/dL) 0.86 Coagulation PT (9.4 - 12.5 SEC) 23.6 H INR (0.90 - 1.17) 2.27 H Hematology CBC w Diff NO MAN DIFF REQ WBC (4.8 - 10.8 /CUMM) 7.9 RBC (4.70 - 6.10 /CUMM) 4.75 Hgb (14.0 - 18.0 G/DL) 14.9 Hct (42 - 52 %) 43.2 MCV (80.0 - 94.0 FL) 91.0 MCH (27.0 - 31.0 PG) 31.4 H RDW (11.5 - 14.5 %) 15.3 H Plt Count (130 - 400 /CUMM) 161 MPV (7.4 - 10.4 FL) 7.6 Gran % (42.2 - 75.2 %) 83.8 H Lymphocytes % (20.5 - 51.1 %) 11.0 L Monocytes % (1.7 - 9.3 %) 4.4 Eosinophils % (0 - 5 %) 0.6 Basophils % (0.0 - 2.0 %) 0.2 Absolute Granulocytes (1.4 - 6.5 /CUMM) 6.6 H Absolute Lymphocytes (1.2 - 3.4 /CUMM) 0.9 L Absolute Monocytes (0.10 - 0.60 /CUMM) 0.3 Absolute Eosinophils (0.0 - 0.7 /CUMM) 0 Absolute Basophils (0.0 - 0.2 /CUMM) 0 PUBS MCHC (33.0 - 37.0 G/DL) 34.5 Toxicology Acetone Level (NEGATIVE) NEGATIVE Diagnostic Data EKG Results EKG shows sinus rhythm rate of 75 with first-degree AV block, left axis deviation and nonspecific ST-T wave abnormalities. This is similar to previous tracings. Second EKG was similar except for a single PVC. CXR Results Chest x-ray was not done on this admission Assessment/Plan Assessment/Plan Mr. Salas has underlying ischemic heart disease. He did have a fall yesterday but it is unclear that this was due to loss of consciousness. So far his workup in the hospital is negative for significant arrhythmias or ischemia. I think he can be ambulated and monitored for another 24 hours and then telemetry can probably be discontinued if he continues to have no clinically significant arrhythmias. I don't think he needs an echocardiogram or stress test at the current time. Consult Acknowledgment - Thank you for your consult request.
[2016-05-17 00:28] VITALS: BP 128/74
[2016-05-17 08:09] LABS: ABSOLUTE BASOPHIL COUNT 0 /CUMM (0.0-0.2); ABSOLUTE EOSINOPHIL COUNT 0.1 /CUMM (0.0-0.7); ABSOLUTE GRANULOCYTE CT 5.9 /CUMM (1.4-6.5); ABSOLUTE MONOCYTE COUNT 0.4 /CUMM (0.10-0.60); BASOPHIL % 0.2 % (0.0-2.0); EOSINOPHIL % 1.5 % (0-5); GRANULOCYTE % 79.6 % (42.2-75.2); HEMATOCRIT 37.8 % (42-52); MEAN CORPUSCULAR HGB 30.8 PG (27.0-31.0); MEAN CORPUSCULAR HGB CONC 33.7 G/DL (33.0-37.0); MEAN CORPUSCULAR VOLUME 91.3 FL (80.0-94.0); MEAN PLATELET VOLUME 8.1 FL (7.4-10.4); PLATELET COUNT 141 /CUMM (130-400); RBC DISTRIBUTION WIDTH 14.5 % (11.5-14.5); RED BLOOD CELL CT 4.14 /CUMM (4.70-6.10); WHITE BLOOD CELL COUNT 7.4 /CUMM (4.8-10.8)
[2016-05-17 08:17] LABS: PT 33.7 SEC (9.4-12.5)
--- NOTE | 2016-05-17 08:25 | PN- Diabetes ---
Assessment/Plan Assessment: The patient feels somewhat improved. He is eating okay. He was started on Levemir 10 units twice a day yesterday along with sliding scale NovoLog. His blood sugars have remained high with his sugar this morning of 259. Plan: Suggest increase the Levemir to 16 units twice a day. We need also to increase the before meals sliding-scale NovoLog. Sliding-scale NovoLog before meals should be 80-150 give 6 units NovoLog, 151-200 give 8 units NovoLog, 201-250 give 10 units NovoLog, 251-300 give 12 units NovoLog, 301-350 give 14 units NovoLog, 351 of 400 give 16 units NovoLog. The patient sodium has remained low. 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 The patient should have a chest x-ray done and also consider a CT scan of his chest. He should also have thyroid function tests done along with a serum osmolality is him and urinalysis and urine osmolality. The patient is on prednisone so we do not need to check his cortisol. However the prednisone should be given in the morning. Giving steroids at night which goes against normal diurnal pattern is more likely to cause iatrogenic Brent's disease Subjective Subjective: feels improved Review of Systems Constitutional: Denies: chills, fever. Cardiovascular: Denies: chest pain. Respiratory: Reports: cough, short of breath. Gastrointestinal: Denies: nausea, vomiting. Genitourinary: Denies: dysuria. Neurological/Psychological: Reports: anxiety. Denies: depressed. Hematologic/Endocrine: Denies: polyuria, polydipsia. Objective Last 24 Hrs of Vital Signs/I&O 130/70 Physical Exam General Appearance: alert, awake, obese Head: normal appearance Neck: normal inspection Respiratory: crackles Cardiovascular: regular rate/rhythm Abdomen: obese Extremities: swelling (legs)
[2016-05-17 08:41] VITALS: BP 122/86
--- NOTE | 2016-05-17 09:17 | Cons- Pulmonary ---
General Information and HPI Consulting Request Date of Consult: 05/17/16 Requested By: keenan Reason for Consult: Chronic interstitial lung disease History of Present Illness: Patient is an 85-year-old gentleman with oxygen dependent interstitial lung disease chronic anticoagulation for DVT PE coronary disease admitted after a fall. His respiratory status is been stable. Recent chest x-ray 1 month ago showed chronic interstitial changes. Only function tests have showed chronic restrictive ventilatory defect. Remains on low-flow oxygen and has shortness of breath with exertion. There is no change in his respiratory status. His INR has been therapeutic Allergies/Medications Allergies: Coded Allergies: NO KNOWN ALLERGIES (10/07/14) Home Med List: Acetaminophen (Tylenol) 500 MG TAB 1 TAB PO DAILY PRN PAIN (Reported) NOT GIVEN IN HOSPITAL Alprazolam 0.25 MG TABLET 1-2 TAB PO DAILY NEEDED Anxiety (Reported) Aspirin (Aspirin E.c.) 81 MG ECT 1 TAB PO DAILY HEART HEALTH (Reported) Calcium Carbonate/Vitamin D3 (Calcium 600 + Vit D 200 Tablet) 600 MG-200 TABLET 2 TAB PO DAILY supplement (Reported) Folic Acid 0.8 MG TAB 1 TAB PO DAILY SUPPLEMENT (Reported) Furosemide 40 MG TABLET 1 TAB PO DAILY EDEMA (Reported) Reason to Stop at ADM: IVAN Gabapentin (Neurontin) 800 MG TABLET 1 TAB PO TID NEUROPATHY (Reported) NOT GIVEN IN HOSPITAL Guaifenesin (Mucinex) [address] 1 TAB PO DAILY PRN SPUTUM PRODUCTION ( Reported) Lactobacillus Acidophilus (Probiotic Formula Capsule) 10B CELL CAPSULE 1 TAB PO DAILY PROBIOTIC (Reported) Lisinopril 10 MG TABLET 1 TAB PO DAILY Blood pressure (Reported) Reason to Stop at ADM: IVAN Metoprolol Succ XL (Toprol XL) 25 MG TAB 50 MG PO DAILY HEART/BP (Reported) Nitroglycerin (Nitrostat) 0.4 MG TAB.SUBL 1 TAB PO DAILY PRN CHEST PAIN ( Reported) Omeprazole 40 MG CAPSULE.DR 1 CAP PO BID STOMACH (Reported) OXYCODONE HCL/ACETAMINOPHEN (Percocet 10-325 MG Tablet) 325 MG/10 MG TAB 1 TAB PO Q4-6 PRN PAIN (Reported) NOT GIVEN IN HOSPITAL Potassium Chloride (K-Tab ER) 20 MEQ TABLET.ER 1 TAB PO DAILY Supplement ( Reported) Reason to Stop at ADM: Not needed, stable level Prednisone 5 MG TAB 1 TAB PO DAILY ARTHRITS (Reported) Rosuvastatin Calcium (Crestor) 40 MG TAB 1 TAB PO DAILY CHOLESTEROL (Reported ) NOT GIVEN IN HOSPITAL Tamsulosin Hydrochloride (Flomax) 0.4 MG CAP.ER.24H 1 CAP PO DAILY URINARY RETENTION (Reported) NOT GIVEN IN HOSPITAL Tiotropium [place] (Spiriva) 18 MCG CAP.W.DEV 1 CAP INH DAILY COPD (Reported) NOT GIVEN IN HOSPITAL Warfarin Sodium (Coumadin) 5 MG TABLET 1 TAB PO 1700 Blood thinner (Reported) Review of Systems Review of Systems Constitutional: Denies: chills, fever. Cardiovascular: Denies: chest pain, peripheral edema, syncope. Respiratory: Reports: short of breath. Denies: cough, sputum production. GI: Denies: abdominal pain, diarrhea, melena. 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 Home Services at Home: Oxygen Smoking Status: Former Smoker Exam & Diagnostic Data Last 24 Hrs of Vital Signs/I&O Vital Signs Date Time Temp Pulse Resp B/P Pulse O2 O2 Flow FiO2 Ox Delivery Rate 05/17 0841 98.4 65 20 122/86 97 Nasal 2.0L Cannula 05/17 0028 98.0 71 18 128/74 98 Nasal 2.0L Cannula 05/17 0000 Nasal 4.0L Cannula 05/16 1600 93 Nasal 4.0L Cannula 05/16 1530 97.6 69 20 102/58 96 Nasal 2.0L Cannula 05/16 0919 74 110/60 02 0919 74 110/60 Intake & Output 05/17 1600 05/17 0800 05/17 0000 Intake Total 350 360 Output Total 650 750 Balance -300 -390 Intake, IV 0 0 Intake, Oral 350 360 Number 0 0 Bowel Movements Output, Urine 650 750 Oxygen saturation 2 L 97% exam for chest shows chronic crackles there are no wheezes cardiac exam shows regular S1 and S2 without murmurs abdominal exam is soft nontender extremities are without calf tenderness Last 48 Hrs of Labs/Michael: Laboratory Tests 05/17/16 0630: Anion Gap 9, Estimated GFR > 60, BUN/Creatinine Ratio 15.5, Serum Osmolality 290 , PT 33.7 H, INR 3.25 H, CBC w Diff NO MAN DIFF REQ, RBC 4.14 L, MCV 91.3, MCH 30.8, RDW 14.5, MPV 8.1, Gran % 79.6 H, Lymphocytes % 13.4 L, Monocytes % 5.3, Eosinophils % 1.5, Basophils % 0.2, Absolute Granulocytes 5.9, Absolute Lymphocytes 1.0 L, Absolute Monocytes 0.4, Absolute Eosinophils 0.1, Absolute Basophils 0, PUBS MCHC 33.7 05/16/16 0645: Troponin I Cancelled 05/16/16 0645: Anion Gap 8, Estimated GFR 53 L, BUN/Creatinine Ratio 14.6, Troponin I < 0.01, PT 25.6 H, INR 2.46 H, CBC w Diff NO MAN DIFF REQ, RBC 4.19 L, MCV 92.9, MCH 31.4 H, RDW 15.1 H, MPV 7.7, Gran % 75.1, Lymphocytes % 15.1 L, Monocytes % 8.1, Eosinophils % 1.5, Basophils % 0.2, Absolute Granulocytes 6.3, Absolute Lymphocytes 1.3, Absolute Monocytes 0.7 H, Absolute Eosinophils 0.1, Absolute Basophils 0, PUBS MCHC 33.8 05/15/16 2300: Urine Color STRAW, Urine Clarity CLEAR, Urine pH 6.0, Ur Specific [place] 1.015, Urine Protein TRACE H, Urine Ketones NEG, Urine Nitrite NEG, Urine Bilirubin NEG, Urine Urobilinogen 0.2, Ur Leukocyte Esterase NEG, Ur Microscopic SEDIMENT EXAMINED, Urine RBC 3-5, Urine WBC RARE, Ur Epithelial Cells RARE, Urine Hemoglobin MOD H, Urine Glucose >=1000 H 05/15/16 2230: Anion Gap 8, Estimated GFR 48 L, BUN/Creatinine Ratio 14.3, Troponin I < 0.01 05/15/16 1830: Acetone Level Cancelled 05/15/16 1334: Hemoglobin A1c 13.2 H 05/15/16 1334: Anion Gap 13, Estimated GFR 48 L, BUN/Creatinine Ratio 15.7, Glucose 580 *H, Serum Osmolality 305 H, Calcium 8.4, Total Bilirubin 0.8, AST 38, ALT 41, Alkaline Phosphatase 112, Troponin I < 0.01, Total Protein 6.4, Albumin 3.8, Globulin 2.6, Albumin/Globulin Ratio 1.5, Vitamin B12 607, 25-OH Vitamin D Total 6.7 L, Folate > 20.0 H, TSH 2.170, Free T4 0.86, PT 23.6 H, INR 2.27 H, CBC w Diff NO MAN DIFF REQ, RBC 4.75, MCV 91.0, MCH 31.4 H, RDW 15.3 H, MPV 7.6, Gran % 83.8 H, Lymphocytes % 11.0 L, Monocytes % 4.4, Eosinophils % 0.6, Basophils % 0.2, Absolute Granulocytes 6.6 H, Absolute Lymphocytes 0.9 L, Absolute Monocytes 0.3, Absolute Eosinophils 0, Absolute Basophils 0, PUBS MCHC 34.5, Acetone Level NEGATIVE Assessment/Plan Impression/Plan: 85-year-old gentleman is had chronic long-standing interstitial lung disease on low-flow oxygen. His respiratory status appears at baseline. No acute interventions appear necessary. Recommendations: Obtain chest x-ray. Continue baseline respiratory medications. No acute respiratory interventions appear indicated at this time. Consult Acknowledgment - Thank you for your consult request.
--- NOTE | 2016-05-17 10:14 | PN- Housestaff ---
ROSY MCNEAL,[facility] 05/17/16 1014: Subjective Follow-up For: Syncopal attack Tele-Events Since Last Visit: Sinus rhythm first degree heart block with MN interval 0.24 PVC and PAC Subjective: Patient was seen and examined this morning, patient denied any dizziness, lightheadedness. He denied a chest pain, palpitation, shortness of breath. He is ambulating well on 2 L oxygen with saturation 95%. He denied any abdominal pain, nausea, vomiting, last bowel movement was 2 days ago he denied any flatus. No overnight events reported by the patient or the nurses. No acute distress, vital signs are stable. Review of Systems Constitutional: Reports: see HPI. Objective Last 24 Hrs of Vital Signs/I&O Vital Signs Date Time Temp Pulse Resp B/P Pulse O2 O2 Flow FiO2 Ox Delivery Rate 05/17 1032 65 122/86 05/17 1032 65 122/86 05/17 0841 98.4 65 20 122/86 97 Nasal 2.0L Cannula 05/17 0800 97 Nasal 2.0L Cannula 05/17 0028 98.0 71 18 128/74 98 Nasal 2.0L Cannula 05/17 0000 Nasal 4.0L Cannula 05/16 1600 93 Nasal 4.0L Cannula Intake & Output 05/17 1600 05/17 0800 05/17 0000 Intake Total 600 350 360 Output Total 25 650 750 Balance 575 -300 -390 Intake, IV 0 0 Intake, Oral 600 350 360 Number 0 0 0 Bowel Movements Output, Urine 25 650 750 Physical Exam General Appearance: Alert, Oriented X3, Cooperative, No Acute Distress Skin: No Rashes, No Breakdown, No Significant Lesion HEENT: Atraumatic, PERRLA, EOMI, Mucous Membr. 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 CT head/neck 05/15 was negative for any acute intracranial pathology or fracture. Lumbar spine x ray 05/15 was within normal limits. Syncopal Episode: Extensive cardiac history of CAD s/p stents 5+ years ago, Diastolic CHF, HTN, and PE/DVT on coumadin. Patient of Dr. Lopez. Most recent echocardiogram () demonstrates an EF of >65% with diastolic dysfunction. -Troponins/EKG negative -Continue Nitroglycerin 0.4mg SL -Cardiology consult was obtained, thanks for recommendation -Recommendation for ambulation and monitoring for the next 24 hours for any signs of arrhythmia Hyperglycemia/New Onset Diabetes: -HbA1c pending -Endocrine recommendation was obtained, thanks for recommendation -Increase Levemir 16 units twice a day -NovoLog sliding scale before meals and separate SS for bedtime -Very low vitamin D level of 6.7 -Continue vitamin D3 1000 units daily -Accuchecks TIDAC/HS -Patient has chronic hyponatremia since last year 2015, sodium today is 131, plasma was not attained is within normal 290 -Urine osmolarity still bending, urine light spot creatinine 41.6, sodium thirsty within normal, potassium 31.6, fraction sodium excretion 0.6 within normal -Chest x-ray toxic fluid possible malignancy as an etiology for SAIDH, chest x- ray failed to show any gross pathology Acute Kidney Injury: -Continue to hold lisinopril/lasix -Blood pressure is stable -BUN/creatinine 17/1.1 back to normal -Discontinue IV fluid yesterday, Patient is eating drinking well COPD: On 2.0L supplemental oxygen at home. -Supplemental oxygen, goal >92% -Pulmonology consultation, thanks for recommendation, continue baseline respiratory medication Obstructive Sleep Apnea - stable, continue nocturnal CPAP CAD - s/p stents, continue aspirin History of PE/DVT - no obvious bleeding, continue monitor INR, 2 mg warfarin was dosed today Gout - stable, continue prednisone 5 mg daily(changed the dose from bedtime to every morning), gabapentin 800 mg every 8 Hypertension - stable, continue Metoprolol succinate 50 mg by mouth daily Hyperlipidemia - stable, continue atorvastatin 80 mg by mouth daily GERD - stable, continue omeprazole 40 mg twice a day BPH - stable, continue flomax 0.4 by mouth daily Anxiety - continue Xanax 0.25 mg 1 or 2 tablet daily Diet CCH2 DVT prophylaxis warfarin CODE STATUS full Consultation cardiology, pulmonology, PT Problem List: 1. Fall at home 2. Diabetes mellitus, new onset 3. COPD (chronic obstructive pulmonary disease) 4. ARTERIAL HYPERTENSION 5. BPH Pain Ratin Pain Location: N/A Pain Goal: Pain 4 or less Pain Plan: mild pain pathway Tomorrow's Labs & Rationales: CBC, CMP, INR Consulting Request: Consulting Specialty: Cardiology SUMIT PRINCE MD 05/17/166: Attending MD Review Statement Attending Statement Attending MD Statement: examined this patient, discuss w/resident/PA/LABOR ECONOMIST, agreed w/resident/PA/LABOR ECONOMIST, reviewed EMR data (avail), discussed with nursing, amended to note Attending Assessment/Plan: The patient was seen and discussed with house staff. Appreciate pulmonary and cardiology input. Agree with the plan of care as outlined.
--- NOTE | 2016-05-17 12:09 | RADIOLOGY REPORT ---
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 Presumptive diagnosis: Lung cancer. COMPARISON: Chest 04/23/2016. TECHNIQUE: AP and lateral views (3 images) of the chest are obtained. FINDINGS: The examination is suboptimal due to the patient's body habitus and technical factors. The lungs are hypoexpanded. There are probable mild subsegmental opacities at both lung bases, left greater than right, which may represent atelectasis related to hypoexpansion. There are no definite mass lesions. IMPRESSION: Suboptimal exam. Probable mild bibasilar atelectasis. No definite mass lesion but difficult to exclude. Consider CT scanning.
[2016-05-17 15:30] VITALS: BP 124/64
--- NOTE | 2016-05-17 19:09 | PN- Cardiology ---
Subjective Subjective: The patient is feeling a little better. He only feels weak. He states he was ambulatory a couple of times today. He is not having any chest pain. He is not having any significant arrhythmias. He has 3 negative troponins. Objective Vital Signs and I&Os Vital Signs Date Time Temp Pulse Resp B/P Pulse O2 O2 Flow FiO2 Ox Delivery Rate 05/17 1600 Nasal 2.0L Cannula 05/17 1530 98.4 64 20 124/64 98 Nasal 2.0L Cannula 05/17 1032 65 122/86 05/17 1032 65 122/86 05/17 0841 98.4 65 20 122/86 97 Nasal 2.0L Cannula 05/17 0800 97 Nasal 2.0L Cannula 05/17 0028 98.0 71 18 128/74 98 Nasal 2.0L Cannula 05/17 0000 Nasal 4.0L Cannula Intake & Output 05/17 1600 05/17 0800 05/17 0000 05/16 1600 05/16 0800 05/16 0000 Intake Total 700 618 019 0751 1300 700 Output Total 425 537 966 9905 950 525 Balance 275 -300 -390 20 350 175 Intake, IV 0 0 800 800 100 Intake, Oral 700 350 360 720 500 600 Number 0 0 0 Bowel Movements Output, Urine 425 370 246 5570 950 525 Patient 265 lb 265 lb Weight Physical Exam: On physical he is in no distress The chest is clear to limited exam The heart reveals regular rhythm and no murmurs Extremities reveal no edema Current Medications: Current Medications Sig/Darshan Start time Last Medication Dose Route Stop Time Status Admin Acetaminophen 650 MG Q6P PRN 05/15 1845 AC PO Alprazolam 0.25 MG DAILY NEEDED 05/15 2044 AC 05/15 PO 05/22 2044 2316 Artificial Tears 2 GTT 4 TIMES/DAY 05/16 1000 AC 05/17 OPH 1652 Aspirin 81 MG DAILY 05/16 1000 AC 05/17 PO 1033 Atorvastatin Calcium 80 MG 1700 05/16 1700 AC 05/17 PO 1651 Bisacodyl 5 MG DAILY PRN 05/17 1545 AC 05/17 PO 1857 Bisacodyl 10 MG DAILY PRN 05/17 1545 AC CO Calcium/Vitamin D 2 TAB DAILY 05/16 1000 AC 05/17 PO 1031 Cholecalciferol 1,000 IU DAILY 05/16 1202 AC 05/17 PO 1032 Folic Acid 1 MG DAILY 05/16 1000 AC 05/17 PO 1032 Furosemide 40 MG DAILY 05/17 1000 CAN PO Gabapentin 800 MG Q8 05/16 0600 AC 05/17 PO 1349 Guaifenesin 600 MG DAILY PRN 05/15 2030 AC PO Insulin Aspart 0 AT BEDTIME 05/16 2200 AC 05/16 SC 2138 Insulin Aspart 0 TIDAC 05/16 1200 AC 05/17 SC 1655 Insulin Detemir 16 UNITS BID 05/17 1000 AC 05/17 SC 1029 Insulin Detemir 10 UNITS BID 05/16 1200 DC 05/16 SC 2138 Lactobacillus 1 CAP DAILY 05/16 1000 AC 05/17 Acidophilus PO 1032 Metoprolol Succinate 50 MG DAILY 05/16 1000 AC 05/17 PO 1032 Morphine Sulfate 2 MG Q6P PRN 05/15 1900 AC 05/16 IV 1115 Nitroglycerin 0.4 MG DAILY 05/16 1000 AC 05/16 SL 0920 Omeprazole 40 MG BID 05/15 2200 AC 05/17 PO 1037 Oxycodone/ 1 TAB Q6P PRN 05/15 1845 AC 05/17 Acetaminophen PO 1651 Patient Medication 1 ED .STK-MED ONE 05/17 1324 NE Teaching ED 05/17 1325 Polyethylene Glycol 17 GM DAILY PRN 05/17 1200 DC PO Polyethylene Glycol 17 GM DAILY PRN 05/16 1745 AC 05/17 PO 0253 Prednisone 5 MG QAM 05/17 1021 AC 05/17 PO 1205 Prednisone 5 MG AT BEDTIME 05/15 2200 DC 05/16 PO 2137 Senna 187 MG AT BEDTIME PRN 05/17 1200 AC PO Senna 187 MG AT BEDTIME PRN 05/16 1745 AC 05/17 PO 1032 Tamsulosin HCl 0.4 MG DAILY 05/16 1000 AC 05/17 PO 1032 Tiotropium [place] 1 PUF DAILY 05/16 1000 AC 05/17 INH 1033 Warfarin Sodium 2 MG COUMADIN 1700 ONE 05/17 1700 DC 05/17 PO 05/17 1701 1651 Results Last 48 Hrs of Labs/Mics: Laboratory Tests 05/17/16 1415: Urine Osmolality 486, Ur Random Creatinine 41.6, Ur Random Sodium 30, Ur Random Potassium 31.6, Fraction Sodium Excret 0.6 05/17/16 0630: Anion Gap 9, Estimated GFR > 60, BUN/Creatinine Ratio 15.5, Serum Osmolality 290 , TSH 2.530, Free T4 0.87, PT 33.7 H, INR 3.25 H, CBC w Diff NO MAN DIFF REQ, RBC 4.14 L, MCV 91.3, MCH 30.8, RDW 14.5, MPV 8.1, Gran % 79.6 H, Lymphocytes % 13.4 L, Monocytes % 5.3, Eosinophils % 1.5, Basophils % 0.2, Absolute Granulocytes 5.9, Absolute Lymphocytes 1.0 L, Absolute Monocytes 0.4, Absolute Eosinophils 0.1, Absolute Basophils 0, PUBS MCHC 33.7 05/16/16 0645: Troponin I Cancelled 05/16/16 0645: Anion Gap 8, Estimated GFR 53 L, BUN/Creatinine Ratio 14.6, Troponin I < 0.01, PT 25.6 H, INR 2.46 H, CBC w Diff NO MAN DIFF REQ, RBC 4.19 L, MCV 92.9, MCH 31.4 H, RDW 15.1 H, MPV 7.7, Gran % 75.1, Lymphocytes % 15.1 L, Monocytes % 8.1, Eosinophils % 1.5, Basophils % 0.2, Absolute Granulocytes 6.3, Absolute Lymphocytes 1.3, Absolute Monocytes 0.7 H, Absolute Eosinophils 0.1, Absolute Basophils 0, PUBS MCHC 33.8 05/15/16 2300: Urine Color STRAW, Urine Clarity CLEAR, Urine pH 6.0, Ur Specific [place] 1.015, Urine Protein TRACE H, Urine Ketones NEG, Urine Nitrite NEG, Urine Bilirubin NEG, Urine Urobilinogen 0.2, Ur Leukocyte Esterase NEG, Ur Microscopic SEDIMENT EXAMINED, Urine RBC 3-5, Urine WBC RARE, Ur Epithelial Cells RARE, Urine Hemoglobin MOD H, Urine Glucose >=1000 H 05/15/16 2230: Anion Gap 8, Estimated GFR 48 L, BUN/Creatinine Ratio 14.3, Troponin I < 0.01 Recent Imaging Studies: PATIENT: ADIEL SULTANA PRESENT AGE: 85 PATIENT ACCOUNT NO: [id number] : 32 LOCATION: [facility] ORDERING PHYSICIAN: GALEN GALLEGOS MD SERVICE DATE: 05/17/16- EXAM TYPE: RAD - XRY-CHEST XRAY, PA AND LATERAL 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 Presumptive diagnosis: Lung cancer. COMPARISON: Chest 04/23/2016. TECHNIQUE: AP and lateral views (3 images) of the chest are obtained. FINDINGS: The examination is suboptimal due to the patient's body habitus and technical factors. The lungs are hypoexpanded. There are probable mild subsegmental opacities at both lung bases, left greater than right, which may represent atelectasis related to hypoexpansion. There are no definite mass lesions. IMPRESSION: Suboptimal exam. Probable mild bibasilar atelectasis. No definite mass lesion but difficult to exclude. Consider CT scanning. DICTATED BY: GERMAN HOANG MD DATE/TIME DICTATED:05/17/161156 REVENUE SPECIALIST:ADA DATE/TIME TRANSCRIBED:05/17/161156 CONFIDENTIAL, DO NOT COPY WITHOUT APPROPRIATE AUTHORIZATION. <Electronically signed in Other Vendor System> SIGNED BY: GERMAN HOANG MD [id number] Assessment/Plan Assessment/Plan Adiel is doing a little bit better. He has been ambulatory. He probably needs some further physical therapy. There have been no obvious arrhythmias that might have caused his fall and I think it was most likely just due to weakness. Telemetry can be discontinued at this time and the patient can be prepared for discharge either to rehabilitation or home with some help. Continue telemetry? No
[2016-05-18 00:03] VITALS: BP 114/70
--- NOTE | 2016-05-18 07:14 | PN- Housestaff ---
ROSY MCNEAL,[facility] 05/18/16 0714: Subjective Follow-up For: Syncopal attack Tele-Events Since Last Visit: Off monitor Subjective: Patient was seen and examined this morning, no overnight events reported by the patient or the nurses. No acute distress, vital signs are stable. Patient denied any dizziness, blurry vision, tinnitus, shortness of breath, nausea or vomiting. Patient reported having his wrist band tight, on left hand, denied any pain, on examination no tenderness, no edema. IV line is in right hand Review of Systems Constitutional: Reports: see HPI. Objective Last 24 Hrs of Vital Signs/I&O Vital Signs Date Time Temp Pulse Resp B/P Pulse O2 O2 Flow FiO2 Ox Delivery Rate 05/18 09 63 142/70 05/18 0926 63 142/70 05/18 08 97 Nasal 2.0L Cannula 05/18 08 97.6 63 18 142/70 97 Nasal Cannula 05/18 0003 97.3 53 16 114/70 94 CPAP 05/18 0000 CPAP Intake & Output 05/18 1600 05/18 0800 02 0000 Intake Total 720 130 250 Output Total 325 250 Balance 720 -195 0 Intake, IV 10 10 Intake, Oral 720 120 240 Number 1 Bowel Movements Output, Urine 325 250 Physical Exam General Appearance: Alert, Oriented X3, Cooperative, No Acute Distress Skin: No Rashes HEENT: Atraumatic, PERRLA, EOMI, Mucous Membr. 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 CT head/neck 05/15 was negative for any acute intracranial pathology or fracture. Lumbar spine x ray 05/15 was within normal limits. Syncopal Episode: Extensive cardiac history of CAD s/p stents 5+ years ago, Diastolic CHF, HTN, and PE/DVT on coumadin. Patient of Dr. Lopez. Most recent echocardiogram () demonstrates an EF of >65% with diastolic dysfunction. -Troponins/EKG negative -Continue Nitroglycerin 0.4mg SL -Cardiology consult was obtained, thanks for recommendation -Recommendation for ambulation and monitoring for the next 24 hours for any signs of arrhythmia Hyperglycemia/New Onset Diabetes: -HbA1c 13.2 -Endocrine recommendation was obtained, thanks for recommendation -Continue Levemir 16 units twice a day -NovoLog sliding scale before meals and separate SS for bedtime -Upon discharge start metformin 500 mg twice a day, discontinue bedtime sliding scale -Very low vitamin D level of 6.7 -Continue vitamin D3 1000 units daily -Accuchecks TIDAC/HS -Patient has chronic hyponatremia since last year 2015, sodium today is 131, plasma was not attained is within normal 290 -Urine osmolarity 486, urine light spot creatinine 41.6, potassium 31.6, fraction sodium excretion 0.6 within normal -Chest x-ray toxic fluid possible malignancy as an etiology for SAIDH, chest x- ray failed to show any gross pathology Acute Kidney Injury: -Continue to hold lisinopril/lasix -Blood pressure is stable -BUN/creatinine 17/1.1 back to normal -Discontinue IV fluid yesterday, Patient is eating drinking well COPD: On 2.0L supplemental oxygen at home. -Supplemental oxygen, goal >92% -Pulmonology consultation, thanks for recommendation, continue baseline respiratory medication Obstructive Sleep Apnea - stable, continue nocturnal CPAP CAD - s/p stents, continue aspirin History of PE/DVT - no obvious bleeding, continue monitor INR, 2 mg warfarin was dosed today Gout - stable, continue prednisone 5 mg daily(changed the dose from bedtime to every morning), gabapentin 800 mg every 8 Hypertension - stable, continue Metoprolol succinate 50 mg by mouth daily Hyperlipidemia - stable, continue atorvastatin 80 mg by mouth daily GERD - stable, continue omeprazole 40 mg twice a day BPH - stable, continue flomax 0.4 by mouth daily Anxiety - continue Xanax 0.25 mg 1 or 2 tablet daily Diet CCH2 DVT prophylaxis warfarin CODE STATUS full Consultation cardiology, pulmonology, PT Problem List: 1. Diabetes mellitus 2. BPH 3. COPD (chronic obstructive pulmonary disease) 4. Diabetes mellitus, new onset Pain Ratin Pain Location: N/A Pain Goal: Pain 4 or less Pain Plan: Mild pain pathway Tomorrow's Labs & Rationales: Patient is for discharge Consulting Request: Consulting Specialty: Cardiology SUMIT PRINCE MD 05/18/16 2209: Attending MD Review Statement Attending Statement Attending MD Statement: examined this patient, discuss w/resident/PA/PAST DUE ACCOUNTS CLERK, agreed w/resident/PA/PAST DUE ACCOUNTS CLERK, reviewed EMR data (avail), discussed with nursing, discussed with case mgmt, amended to note Attending Assessment/Plan: The patient was seen and discussed with house staff. Agree with the plan of care as outlined. OK to discharge today to home with home services/PT.
[2016-05-18 08:00] VITALS: BP 142/70
[2016-05-18 08:00] LABS: ABSOLUTE BASOPHIL COUNT 0 /CUMM (0.0-0.2); ABSOLUTE EOSINOPHIL COUNT 0.2 /CUMM (0.0-0.7); ABSOLUTE GRANULOCYTE CT 3.4 /CUMM (1.4-6.5); ABSOLUTE LYMPH COUNT 1.8 /CUMM (1.2-3.4); ABSOLUTE MONOCYTE COUNT 0.6 /CUMM (0.10-0.60); BASOPHIL % 0.6 % (0.0-2.0); EOSINOPHIL % 2.7 % (0-5); GRANULOCYTE % 55.9 % (42.2-75.2); HEMATOCRIT 34.8 % (42-52); MEAN CORPUSCULAR HGB 31.6 PG (27.0-31.0); MEAN PLATELET VOLUME 7.7 FL (7.4-10.4); PLATELET COUNT 143 /CUMM (130-400); RED BLOOD CELL CT 3.74 /CUMM (4.70-6.10)
--- NOTE | 2016-05-18 08:04 | PN- Pulmonary ---
Subjective HPI/Critical Care Issues: Patient feels well without shortness of breath or chest pain Objective Current Medications: Current Medications Sig/Darshan Start time Last Medication Dose Route Stop Time Status Admin Acetaminophen 650 MG Q6P PRN 05/15 1845 AC PO Alprazolam 0.25 MG DAILY NEEDED 05/15 2045 AC 05/15 PO 05/22 2044 2316 Artificial Tears 2 GTT 4 TIMES/DAY 05/16 1000 AC 05/17 OPH 2113 Aspirin 81 MG DAILY 05/16 1000 AC 05/17 PO 1033 Atorvastatin Calcium 80 MG 1700 05/16 1700 AC 05/17 PO 1651 Bisacodyl 5 MG DAILY PRN 05/17 1545 AC 05/17 PO 1857 Bisacodyl 10 MG DAILY PRN 05/17 1545 AC MO Calcium/Vitamin D 2 TAB DAILY 05/16 1000 AC 05/17 PO 1031 Cholecalciferol 1,000 IU DAILY 05/16 1202 AC 05/17 PO 1032 Folic Acid 1 MG DAILY 05/16 1000 AC 05/17 PO 1032 Furosemide 20 MG .STK-MED ONE 05/17 1424 DC PO 05/17 1425 Furosemide 40 MG DAILY 05/17 1000 CAN PO Gabapentin 800 MG Q8 05/16 0600 AC 05/18 PO 0547 Guaifenesin 600 MG DAILY PRN 05/15 2030 AC PO Insulin Aspart 0 AT BEDTIME 05/16 2200 AC 05/16 SC 2138 Insulin Aspart 0 TIDAC 05/16 1200 AC 05/18 SC 0735 Insulin Detemir 16 UNITS BID 05/17 1000 AC 05/17 SC 2113 Insulin Detemir 10 UNITS BID 05/16 1200 DC 05/16 SC 2138 Lactobacillus 1 CAP DAILY 05/16 1000 AC 05/17 Acidophilus PO 1032 Metoprolol Succinate 50 MG DAILY 05/16 1000 AC 05/17 PO 1032 Morphine Sulfate 2 MG Q6P PRN 05/15 1900 AC 05/16 IV 1115 Nitroglycerin 0.4 MG DAILY 05/16 1000 AC 05/16 SL 0920 Omeprazole 40 MG BID 05/15 2200 AC 05/17 PO 2113 Oxycodone/ 1 TAB Q6P PRN 05/15 1845 AC 05/18 Acetaminophen PO 0443 Patient Medication 1 ED .STK-MED ONE 05/17 1324 DC Teaching ED 05/17 1325 Polyethylene Glycol 17 GM DAILY PRN 05/17 1200 DC PO Polyethylene Glycol 17 GM DAILY PRN 05/16 1745 AC 05/17 PO 0253 Prednisone 5 MG QAM 05/17 1021 AC 05/17 PO 1205 Prednisone 5 MG AT BEDTIME 05/15 2200 DC 05/16 PO 2137 Senna 187 MG AT BEDTIME PRN 05/17 1200 AC PO Senna 187 MG AT BEDTIME PRN 05/16 1745 AC 05/17 PO 1032 Tamsulosin HCl 0.4 MG DAILY 05/16 1000 AC 05/17 PO 1032 Tiotropium [place] 1 PUF DAILY 05/16 1000 AC 05/17 INH 1033 Warfarin Sodium 2 MG COUMADIN 1700 ONE 05/17 1700 DC 05/17 PO 05/17 1701 1651 Vital Signs & I&O Last 24 Hrs of Vitals and I&O: Vital Signs Date Time Temp Pulse Resp B/P Pulse O2 O2 Flow FiO2 Ox Delivery Rate 05/18 0003 97.3 53 16 114/70 94 CPAP 05/18 0000 CPAP 05/17 1600 Nasal 2.0L Cannula 05/17 1530 98.4 64 20 124/64 98 Nasal 2.0L Cannula 05/17 1032 65 122/86 05/17 1032 65 122/86 05/17 0841 98.4 65 20 122/86 97 Nasal 2.0L Cannula Intake & Output 05/18 1600 05/18 0800 05/18 0000 Intake Total 130 250 Output Total 325 250 Balance -195 0 Intake, IV 10 10 Intake, Oral 120 240 Output, Urine 325 250 Since saturation 2 L 94% exam of his chest shows chronic crackles cardiac exam shows regular S1 and S2 without murmurs Impression/Plan Impression/Plan Impression/Plan: 85-year-old gentleman is had chronic long-standing interstitial lung disease on low-flow oxygen. His respiratory status appears at baseline. No acute interventions appear necessary. Recommendations: Resume baseline bronchodilator medications and current level of supplemental oxygen no other pulmonary recommendations at this time patient can be seen as an outpatient for follow-up
--- NOTE | 2016-05-18 08:21 | PN- Diabetes ---
Assessment/Plan Assessment: The patient feels somewhat improved. He is eating okay. He was started on Levemir 16 units twice a day yesterday along with sliding scale NovoLog. His blood sugars have have begun to improve. The patient serum sodium has improved to 131. Plan: Suggest that if the patient goes home today that he be discharged on Levemir 16 units twice a day along with sliding scale NovoLog before meals. I would stop the bedtime sliding scale. He should see receive instruction on how to use an insulin pen. The patient needs to be instructed on a diabetic diet. I would also consider beginning metformin 500 mg twice a day with breakfast and supper. His renal function has now returned to normal. He needs to be followed carefully as an outpatient. Subjective Subjective: Feels better Review of Systems Constitutional: Denies: chills, fever. Cardiovascular: Reports: no symptoms. Respiratory: Reports: cough. Gastrointestinal: Denies: nausea, vomiting. Genitourinary: Denies: dysuria. Objective Last 24 Hrs of Vital Signs/I&O Vital Signs Date Time Temp Pulse Resp B/P Pulse O2 O2 Flow FiO2 Ox Delivery Rate 05/18 0003 97.3 53 16 114/70 94 CPAP / 0000 CPAP 05/17 1600 Nasal 2.0L Cannula 05/17 1530 98.4 64 20 124/64 98 Nasal 2.0L Cannula 05/17 1032 65 122/86 05/17 1032 65 122/86 / 0841 98.4 65 20 122/86 97 Nasal 2.0L Cannula Intake & Output 05/18 1600 05/18 0800 02 0000 Intake Total 130 250 Output Total 325 250 Balance -195 0 Intake, IV 10 10 Intake, Oral 120 240 Output, Urine 325 250 Vital Signs Date Time Temp Pulse Resp B/P Pulse O2 O2 Flow FiO2 Ox Delivery Rate 05/18 2 97.3 53 16 114/70 94 CPAP 02/ 0000 CPAP 05/17 1600 Nasal 2.0L Cannula 05/17 1530 98.4 64 20 124/64 98 Nasal 2.0L Cannula 05/17 1032 65 122/86 05/17 1032 65 122/86 / 0841 98.4 65 20 122/86 97 Nasal 2.0L Cannula Intake & Output 05/18 1600 05/18 0800 02/ 0000 Intake Total 130 250 Output Total 325 250 Balance -195 0 Intake, IV 10 10 Intake, Oral 120 240 Output, Urine 325 250 Physical Exam General Appearance: alert, awake, comfortable Head: normal appearance Neck: normal inspection Respiratory: decreased breath sounds, crackles Cardiovascular: regular rate/rhythm Extremities: normal inspection Current Medications: Current Medications Sig/Darshan Start time Last Medication Dose Route Stop Time Status Admin Acetaminophen 650 MG Q6P PRN 05/15 1845 AC PO Alprazolam 0.25 MG DAILY NEEDED 05/15 204 AC 05/15 PO 05/22 204 2316 Artificial Tears 2 GTT 4 TIMES/DAY 05/16 1000 AC 05/17 OPH 2113 Aspirin 81 MG DAILY 05/16 1000 AC 05/17 PO 1033 Atorvastatin Calcium 80 MG 1700 05/16 1700 AC 05/17 PO 1651 Bisacodyl 5 MG DAILY PRN 05/17 1545 AC 05/17 PO 1857 Bisacodyl 10 MG DAILY PRN 05/17 1545 AC SD Calcium/Vitamin D 2 TAB DAILY 05/16 1000 AC 05/17 PO 1031 Cholecalciferol 1,000 IU DAILY 05/16 1202 AC 05/17 PO 1032 Folic Acid 1 MG DAILY 05/16 1000 AC 05/17 PO 1032 Furosemide 20 MG .STK-MED ONE 05/17 1424 DC PO 05/17 1425 Furosemide 40 MG DAILY 05/17 1000 CAN PO Gabapentin 800 MG Q8 05/16 0600 AC 05/18 PO 0547 Guaifenesin 600 MG DAILY PRN 05/15 2030 AC PO Insulin Aspart 0 AT BEDTIME 05/16 2200 AC 05/16 SC 2138 Insulin Aspart 0 TIDAC 05/16 1200 AC 05/18 SC 0735 Insulin Detemir 16 UNITS BID 05/17 1000 AC 05/17 SC 2113 Insulin Detemir 10 UNITS BID 05/16 1200 DC 05/16 SC 2138 Lactobacillus 1 CAP DAILY 05/16 1000 AC 05/17 Acidophilus PO 1032 Metoprolol Succinate 50 MG DAILY 05/16 1000 AC 05/17 PO 1032 Morphine Sulfate 2 MG Q6P PRN 05/15 1900 AC 05/16 IV 1115 Nitroglycerin 0.4 MG DAILY 05/16 1000 AC 05/16 SL 0920 Omeprazole 40 MG BID 05/15 2200 AC 05/17 PO 2113 Oxycodone/ 1 TAB Q6P PRN 05/15 1845 AC 05/18 Acetaminophen PO 0443 Patient Medication 1 ED .STK-MED ONE 05/17 1324 DC Teaching ED 05/17 1325 Polyethylene Glycol 17 GM DAILY PRN 05/17 1200 DC PO Polyethylene Glycol 17 GM DAILY PRN 05/16 1745 AC 05/17 PO 0253 Prednisone 5 MG QAM 05/17 1021 AC 05/17 PO 1205 Prednisone 5 MG AT BEDTIME 05/15 2200 DC 05/16 PO 2137 Senna 187 MG AT BEDTIME PRN 05/17 1200 AC PO Senna 187 MG AT BEDTIME PRN 05/16 1745 AC 05/17 PO 1032 Tamsulosin HCl 0.4 MG DAILY 05/16 1000 AC 05/17 PO 1032 Tiotropium [place] 1 PUF DAILY 05/16 1000 AC 05/17 INH 1033 Warfarin Sodium 2 MG COUMADIN 1700 ONE 05/17 1700 DC 05/17 PO 05/17 1701 1651 Findings Pertinent Lab/Michael Results: Laboratory Tests 05/18 05/17 0635 1415 Chemistry Sodium (137 - 145 mmol/L) 132 L Potassium (3.5 - 5.1 mmol/L) 3.6 Chloride (98 - 107 mmol/L) 97 L Carbon Dioxide (22 - 30 mmol/L) 29 Anion Gap (5 - 16) 6 BUN (9 - 20 mg/dL) 15 Creatinine (0.7 - 1.2 mg/dL) 1.2 Estimated GFR (>60 ml/min) 58 L BUN/Creatinine Ratio (7 - 25 %) 12.5 Coagulation PT Pending INR Pending Hematology CBC w Diff Pending WBC Pending RBC Pending Hgb Pending Hct Pending MCV Pending MCH Pending RDW Pending Plt Count Pending MPV Pending PUBS MCHC Pending Urines Urine Osmolality (300 - 1000 MOSM/KG) 486 Ur Random Creatinine (mg/dL) 41.6 Ur Random Sodium (30 - 90 mmol/L) 30 Ur Random Potassium (mmol/L) 31.6 Fraction Sodium Excret (<1% %) 0.6
[2016-05-18 08:24] LABS: PT 38.7 SEC (9.4-12.5)
[2016-05-18 09:26] VITALS: BP 142/70
[2016-05-18] MEDS ORDERED: LEVEMIR100 UNIT/1 SC (11:18)
[2016-05-18] MEDS ORDERED: ATORVASTATIN CA80 M1 PO (11:26)
[2016-05-18] MEDS ORDERED: FOLIC ACID1 M1 PO (11:28)
[2016-05-18] MEDS ORDERED: GLUCOPHAGE500 M1 PO (11:28)
[2016-05-18] MEDS ORDERED: NOVOLOG100 UNIT/2 SC (11:28)
[2016-05-18] MEDS ORDERED: VITAMIN D31000 UNI2 PO (11:28)
--- NOTE | 2016-05-18 11:33 | Patient Discharge Instructions ---
Discharge Instructions General Discharge Information Special Instructions: -Please follow up with PCP within one week after discharge -Please follow up with Dr. Gilmore Endocrinology after discharge -Please follow up with Dr. Shelton Cardiology after discharge -Please follw up with Dr. Moyer Lung doctor after discharge -Please take 2.5 mg of warfarin on Friday 05/19 and Saturday 05/20 -Visiting nurse will measure your INR on Saturday Acute Coronary Syndrome Inclusion Criteria At DC or during hospital stay patient has or had the following: ACS DIAGNOSIS No Discharge Core Measures Meds if any: Prescribed or Continued at Discharge Meds if any: NOT Prescribed or Continued at Discharge Congestive Heart Failure Inclusion Criteria At DC or during hospital stay patient has or had the following: CHF DIAGNOSIS No Discharge Core Measures Meds if any: Prescribed or Continued at Discharge Meds if any: NOT Prescribed or Continued at Discharge Cerebrovascular accident Inclusion Criteria At DC or during hospital stay patient has or had the following: CVA/TIA Diagnosis No Discharge Core Measures Meds if any: Prescribed or Continued at Discharge Meds if any: NOT Prescribed or Continued at Discharge Venous thromboembolism Inclusion Criteria VTE Diagnosis No VTE Type NONE VTE Confirmed by (Test) NONE Discharge Core Measures - Per Current guidelines, there needs to be overlap - treatment for the first 5 days of Warfarin therapy. - If discharged on Warfarin prior to 5 days of - overlap therapy, the patient will need to be - assessed for post discharge needs including - *Post discharge parental anticoagulation - *Warfarin and/or parental anticoagulation education - *Follow up date to check INR post discharge At least 5 days overlap therapy as Inpatient Yes Meds if any: Prescribed or Continued at Discharge Note: Overlap Therapy is Warfarin and Anticoagulant Meds if any: NOT Prescribed or Continued at Discharge
[2016-05-18] MEDS ORDERED: NOVOLOG FL100 UNIT/1 SC (14:31)
[2016-05-18] MEDS ORDERED: LEVEMIR FL100 UNIT/1 SC (14:37)
--- NOTE | 2016-05-18 19:59 | Discharge Summary ---
Visit Information Visit Dates Admission Date: 05/15/16 Discharge Date: 05/18/16 Hospital Course Course Attending Physician: SUMIT PRINCE MD Primary Care Physician: ELDER MCNEAL,OKSANA Galindo Consulting Request: Consulting Specialty: Cardiology Hospital Course: 85 year old male with past medical history significant for CAD s/p stent, chronic diastolic CHF (EF 65% 2014), HTN, HLD, COPD on 2L, Hx of pulmonary embolism/DVT (s/p IVC filter 2013) on coumadin, TIA (x 2 times), SILVANO on CPAP, gout on prednisone presented to the emergency room after a witnessed fall at home. On admission the patient denied chest pain/palpitation, shortness of breath, dizziness, visual disturbance, weakness prior to fall. Patient was admitted to telemetry floor to monitor any arrhythmia. CT head/neck 05/15 was negative for any acute intracranial pathology or fracture. Lumbar spine x ray 05/15 was within normal limits. Syncopal Episode: Extensive cardiac history of CAD s/p stents 5+ years ago, Diastolic CHF, HTN, and PE/DVT on coumadin. Patient of Dr. Lopez. Most recent echocardiogram () demonstrates an EF of >65% with diastolic dysfunction. -Cardiology consult was obtained, thanks for recommendation -Troponins/EKG negative -Nitroglycerin 0.4mg SL -Discontinue lisinopril and Lasix -Atorvastatin 80 mg daily -Patient was monitored for the last 48 hours, no signs of arrhythmia -Patient started to ambulate with PT, initially he had some dizziness which was resolved for the last 24 hours Hyperglycemia/New Onset Diabetes: -HbA1c 13.2 -Endocrine recommendation was obtained, thanks for recommendation -Upon discharge, we started metformin 500 mg twice a day, continue Levemir 16 units twice daily, NovoLog sliding scale before meals, discontinue bedtime sliding scale -Very low vitamin D level of 6.7 -Continue vitamin D3 1000 units daily -Patient has chronic hyponatremia since last year 2015, sodium today is 131, plasma was not attained is within normal 290 -Urine osmolarity 486, urine light spot creatinine 41.6, potassium 31.6, fraction sodium excretion 0.6 within normal -Chest x-ray toxic fluid possible malignancy as an etiology for SAIDH, chest x- ray failed to show any gross pathology Acute Kidney Injury: -Continue to hold lisinopril/lasix -Blood pressure is stable -BUN/creatinine 17/1.1 back to normal COPD: On 2.0L supplemental oxygen at home. -Supplemental oxygen, goal >92% -Pulmonology consultation, thanks for recommendation, continue baseline respiratory medication Obstructive Sleep Apnea - stable, continue nocturnal CPAP CAD - s/p stents, continue aspirin History of PE/DVT - no obvious bleeding, continue monitor INR, 2 mg warfarin was dosed today Gout - stable, continue prednisone 5 mg daily(changed the dose from bedtime to every morning), gabapentin 800 mg every 8 Hypertension - stable, continue Metoprolol succinate 50 mg by mouth daily Hyperlipidemia - stable, continue atorvastatin 80 mg by mouth daily GERD - stable, continue omeprazole 40 mg twice a day BPH - stable, continue flomax 0.4 by mouth daily Anxiety - continue Xanax 0.25 mg 1 or 2 tablet daily Diet CCH2 DVT prophylaxis warfarin CODE STATUS full Consultation cardiology, pulmonology, PT Allergies: Coded Allergies: NO KNOWN ALLERGIES (10/07/14) Disposition Summary Disposition Principal Diagnosis: Syncopal episode Additional Diagnosis: New onset of diabetes mellitus Discharge Disposition: home or self care Discharge Instructions General Discharge Information Code Status: Full Code Patient's Diet: Diabetic diet Patient's Activity: As tolerated Follow-Up Instructions/Appts: -Please follow up with PCP within one week after discharge -Please follow up with Dr. Gilmore Endocrinology after discharge -Please follow up with Dr. Shelton Cardiology after discharge -Please follw up with Dr. Moyer Lung doctor after discharge -Please take 2.5 mg of warfarin on Friday 05/19 and Saturday 05/20 -Visiting nurse will measure your INR on Saturday Medications at Discharge Discharge Medications: Stop taking the following medications: Potassium Chloride (K-Tab ER) 20 MEQ TABLET.ER ORAL DAILY Furosemide (Furosemide) 40 MG TABLET ORAL DAILY Lisinopril (Lisinopril) 10 MG TABLET ORAL DAILY Folic Acid (Folic Acid) 0.8 MG TAB ORAL DAILY Rosuvastatin Calcium (Crestor) 40 MG TAB ORAL DAILY Continue taking these medications: Prednisone (Prednisone) 5 MG TABLET 5 Milligram ORAL Every Morning Qty = 60 Instructions: Please take this medication every morning Metoprolol Succ XL (Toprol XL) 25 MG TAB 50 Milligram ORAL DAILY OXYCODONE HCL/ACETAMINOPHEN (Percocet 10-325 MG Tablet) 325 MG/10 MG TAB 1 Tablet ORAL EVERY 4-6 HOURS as needed for PAIN Instructions: NOT GIVEN IN HOSPITAL Acetaminophen (Tylenol) 500 MG TAB 1 Tablet ORAL DAILY as needed for PAIN Instructions: NOT GIVEN IN HOSPITAL Guaifenesin (Mucinex) [address] Tablet ORAL DAILY as needed for SPUTUM PRODUCTION Comments: Last Taken: NOT GIVEN IN HOSPITAL Time: Gabapentin (Neurontin) 800 MG TABLET 1 Tablet ORAL THREE TIMES DAILY Instructions: NOT GIVEN IN HOSPITAL Lactobacillus Acidophilus (Probiotic Formula Capsule) 10B CELL CAPSULE 1 Tablet ORAL DAILY Comments: Last Taken: 09/28/14 Time: 09:10A.M Nitroglycerin (Nitrostat) 0.4 MG TAB.SUBL 1 Tablet ORAL DAILY as needed for CHEST PAIN Comments: Last Taken: NOT GIVEN IN HOSPITAL Time: Tiotropium [place] (Spiriva) 18 MCG CAP.W.DEV 1 Capsule Inhale through mouth DAILY Instructions: NOT GIVEN IN HOSPITAL Tamsulosin Hydrochloride (Flomax) 0.4 MG CAP.ER.24H 1 Capsule ORAL DAILY Instructions: NOT GIVEN IN HOSPITAL Aspirin (Aspirin E.c.) 81 MG ECT 1 Tablet ORAL DAILY Comments: Last Taken: 08/27/14 Time: 5:22PM Warfarin Sodium (Coumadin) 5 MG TABLET 1 Tablet ORAL 5 PM Comments: Last Taken: 05/17/16 Time: 5 PM Alprazolam (Alprazolam) 0.25 MG TABLET 1-2 Tablet ORAL DAILY NEEDED Comments: NOT GIVEN IN HOSPITAL Omeprazole (Omeprazole) 40 MG CAPSULE.DR 1 Capsule ORAL TWICE DAILY Comments: Last Taken: 05/18/16 Time: 9:30 AM Calcium Carbonate/Vitamin D3 (Calcium 600 + Vit D 200 Tablet) 600 MG-200 TABLET 2 Tablet ORAL DAILY Comments: Last Taken: 05/18/16 Time: 9:30 AM Start taking the following new medications: Insulin Aspart, Recombinant (Novolog Flexpen) 100 UNIT/ML INSULN.PEN 0 Inject into fatty tissue 3 TIMES DAILY BEFORE MEALS Qty = 60 No Refills Instructions: 80-150 6 units 151-200 8 units 201-250 10 units 251-300 12 units 301-350 14 units 351-400 16 units Comments: Last Taken: 05/18/16 Time: 12:30 PM Insulin Detemir (Levemir Flextouch) 100 UNIT/ML (3 ML) INSULN.PEN 16 Units Inject into fatty tissue TWICE DAILY Qty = 60 No Refills Comments: Last Taken: 05/18/16 Time: 9:30 AM Metformin Hydochloride (Glucophage) 500 MG TABLET 500 Milligram ORAL 0800,1700 Qty = 30 No Refills Comments: NOT GIVEN IN HOSPITAL Folic Acid (Folic Acid) 1 MG TABLET 1 Milligram ORAL DAILY Qty = 60 No Refills Comments: Last Taken: 05/18/16 Time: 9:30 AM Cholecalciferol (Vitamin D3) 1,000 UNIT TABLET 1,000 International Unit ORAL DAILY Qty = 60 No Refills Comments: Last Taken: 05/18/16 Time: 9:30 AM Atorvastatin Calcium (Atorvastatin Calcium) 80 MG TABLET 1 Tablet ORAL DAILY Qty = 30 No Refills Comments: Last Taken: 05/17/16 Time: 5 PM Copies To: JIA MCNEAL,CARLOS Ladd; ELDER MCNEAL,OKSANA Galindo; BAILEY MCNEAL,MARTY Valencia; MONIQUE MCNEAL,CARLOS Gresham Attending MD Review Statement Documenting Attending: SUMIT PRINCE MD Other Findings: The patient was seen and agree with the plan of care upon discharge.
== END 2016-05-18 15:00 | disposition home health service (06) | DRG 312 ==
LOC: ENRESERVDT → ENRESERVTM → CANRESERV → ERH 13:11 → 1NO 17:33 → ENPENDDIS 17:33 → ERHI 17:33 → CANBEDREQ 19:51 → 1NO 21:50
PROVIDERS: Emergency Medicine; Internal Medicine; Student in an Organized Health Care Education/Training Program; ADMIT Student in an Organized Health Care Education/Training Program
DX: R55 Syncope and collapse (principal); I11.0 Hypertensive heart disease with heart failure; I50.32 Chronic diastolic (congestive) heart failure; E11.65 Type 2 diabetes mellitus with hyperglycemia; J44.9 Chronic obstructive pulmonary disease, unspecified; Z86.711 Personal history of pulmonary embolism; Z86.718 Personal history of other venous thrombosis and embolism; I25.10 Atherosclerotic heart disease of native coronary artery without angina pectoris; E78.5 Hyperlipidemia, unspecified; Z79.4 Long term (current) use of insulin; G47.33 Obstructive sleep apnea (adult) (pediatric); Z68.38 Body mass index [BMI] 38.0-38.9, adult; E66.01 Morbid (severe) obesity due to excess calories; M10.9 Gout, unspecified; M35.3 Polymyalgia rheumatica; F41.9 Anxiety disorder, unspecified; N40.0 Benign prostatic hyperplasia without lower urinary tract symptoms; I44.0 Atrioventricular block, first degree; Z87.891 Personal history of nicotine dependence
CPT/HCPCS: 1NP; 84133; 84300; 36415; 72110; 81001; 82436; 82570; 93005; 93010; 96374; 97110-GO; 97116-GO; 97161-GP; 97530-GO; J1815; J3490; J7512